=== PATIENT | male | born 1950 | race Caucasian/White ===

== ENCOUNTER 2024-01-16 19:50 | Inpatient (IN) | payer MEDICARE, OTHER, SELFPAY ==
[2024-01-16] VITALS (7 sets, daily range): BP systolic 108–146; BP diastolic 59–91; BMI 24.1; BMI 23.6
--- NOTE | 2024-01-16 15:35 | ED.GENMED ---
History of Present Illness
General
Chief Complaint: Male Genito-Urinary Symptoms
Time Seen by Provider: 01/16/24 15:09
Travel History
Have you had any contact with someone who has COVID-19?: No
Do you have any symptoms of coronavirus? Fever > 100 degrees, chills, cough, shortness of breath, sore throat, loss of taste or smell, muscle aches, or headache?: No
History of Present Illness
History of Present Illness:
73-year-old male with history of prostate hypertrophy presents to the emergency department for evaluation swelling to the perineum ongoing for the past 3 weeks. States it is painful to sit on it however denies any pain locally to the area. Does
report dysuria as well. No fever, chills, night sweats, nausea, or vomiting. He did undergo a robotic partial prostatectomy for BPH by urology at this hospital in early 2021 via abdominal approach. He denies any dyschezia or rectal bleeding
Past History
Past History
ED Past Medical History: Other (Prostatic hypertrophy and urinary retention)
ED Past Surgical History: Cholecystectomy
Social History
Personal:
Living: with family
Review of Systems
Review of Systems
Allergies reviewed?: Yes
All Other Systems: ROS reviewed and negative except as documented in HPI and ROS
Phy Exam
Physical Exam
Physical Exam:
GEN: Well appearing, NAD, WDWN
HEENT: Oral mucosa moist, no scleral icterus
Cardiac: Regular rate
Lung: No respiratory distress, no tachypnea
: Unremarkable exam of the penis and scrotum, no epididymitis, no testicular tenderness. Perineum appears to be enlarged, somewhat firm and nonmobile enlargement, unable to palpate the deepest margins of the abnormality, does not extend toward
the rectum, no evidence for rectal abscess externally
MSK: No gross deformity or injuries
Skin: Good color, no pallor or jaundice, no rashes
Neuro: AO x3, moves all extremities freely
Psych: Calm, cooperative
Course
Orders/Labs/Results
Orders:
Orders
01/16/24 Dinner
Regular
At Your Request: Full Participation
Does patient need a safe tray?: No
01/16/24 15:50
CT Pelvis With Iv Contrast Urgent
Comment:
Reason For Exam: perineal mass
01/16/24 15:56
Complete Blood Count/With Diff Urgent
Comprehensive Metabolic Panel Urgent
Urinalysis Reflex To Culture Urgent
Date Specimen was Collected: 01/16/24
Time Specimen was Collected: 15:55
Urine Microscopic Reflex Cult Urgent
Urine Culture Urgent
[facility] Source: U
Specimen Description:
Date Specimen was Collected: 01/16/24
Time Specimen was Collected: 15:55
01/16/24 18:31
Piperacillin/Tazo 3.375 Gram [Zosyn] 3.375 gram in 50 ml IV NOW
01/16/24 18:48
Lactic Acid Q4H
Comment: CANCEL 2nd LACTIC ACID IF 1st LACTIC ACID IS LESS THAN 2
Blood Culture Q30M
KAMI Source: Blood/Venous
Specimen Description:
01/16/24 18:58
Blood Culture Q30M
KAMI Source: Blood/Venous
Specimen Description:
01/16/24 19:09
Vancomycin [Vancocin] 1,500 mg 0.9% Sodium Chloride [Nss] 20 ml 0.9% Sodium Chloride 250 ml [Nss] 250 ml IV NOW
01/16/24 19:16
Admit/Transfer Patient As Directed
Co-Sign Provider:
Level of Care: Inpatient admission
Assign to:: Medical/Surgical
Physician / Group: momo
Diagnosis: perineal abscess, uti
Reason for Hospitalization: perineal abscess
Expected length of stay greater than two midnights?: Yes
ELOS- Estimated Length of Stay in days: 2
I certify the patient meets the requirements for IP care: Yes
01/16/24 19:17
Code Status As Directed
Resuscitation Status: Full Code
01/16/24 20:26
Acetaminophen [Tylenol] 650 mg PO Q4HPRN PRN
Ondansetron Injectable [Zofran] 4 mg IV Q6HPRN PRN
VANCOMYCIN Pharmacy to Dose [VANCOCIN Pharmacy to Dose] 1 each Pharmacy To Prepare [Call Pharmacy To Prepare] 0 ml IV PER PROTOCOL
01/16/24 20:26
UROLOGY CONSULT Routine
Consulting Provider: Fernando Tan
Was physician already notified: Yes
Activity As Directed
Activity Level: As Tolerated
Bladder Scan As Directed
Follow Bladder Retention/Intermittent Cath Algorithm?: Yes
PRN if no void in __ hours: 6
Frequency: Per Retention Algorithm
If Bladder Scan Result >: 400
then:: Straight cath
Pneumatic Compression Sleeves As Directed
Type: Knee high
Straight Cath As Directed
Frequency: Per Retention Algorithm
Additional Instructions: straight cath as needed per acute urinary retention algorithm for 24 hrs
Additional Instructions: for bladder scan greater than 400 mL
Vital Signs As Directed
Frequency: Per unit guidelines
DX Deep Vein Thrombosis Video Routine
01/16/24 22:45
Lactic Acid Q4H
Comment: CANCEL 2nd LACTIC ACID IF 1st LACTIC ACID IS LESS THAN 2
01/17/24 02:00
Piperacillin/Tazo 3.375 Gram [Zosyn] 3.375 gram in 50 ml IV Q6H
01/17/24 Breakfast
NPO
Allow oral meds: Yes
Allow clear liquids: Sips of Clears
Complete Blood Count/With Diff IN AM
Comprehensive Metabolic Panel IN AM
Abnormal Lab Results
01/16/24
15:56
RBC 4.33 L 10^6/uL
(4.70-6.10)
MCV 95.2 H fL
(80.0-94.0)
MCH 31.6 H pg
(27.0-31.0)
Absolute Neuts (auto) 6.8 H 10^3/uL
(1.4-6.5)
Absolute Monos (auto) 0.8 H 10^3/uL
(0.1-0.6)
Lymphocytes % 16.9 L %
(20.5-51.1)
Potassium 5.3 H mmol/L
(3.5-5.1)
Glucose 102 H mg/dl
(70-99)
Urine Ketones Trace A
(Negative)
Ur Occult Blood Reflex 2+ A
(Negative)
Leukocyte Esterase Rfl 2+ A
(Negative)
Urine WBC (Reflex) >100 A /HPF
(0-5)
Urine Bacteria (Reflex) Few A
(Negative)
Urine Albumin (Reflex) 1+ A
(Neg - Trace)
01/16/24 15:56
01/16/24 15:56
Vital Signs
Initial and Last Documented VS:
Initial Vital Signs
Temp Pulse Resp BP Pulse Ox
98.2 F 82 17 121/79 98
01/16/24 14:00 01/16/24 14:00 01/16/24 14:00 01/16/24 14:00 01/16/24 14:00
Last Documented Vital Signs
Temp Pulse Resp BP Pulse Ox
97.8 F 76 18 146/83 96
01/16/24 20:36 01/16/24 20:36 01/16/24 20:36 01/16/24 20:36 01/16/24 20:36
MDM/Problems Addressed
MDM/Problems Addressed:
73-year-old male presents with swelling and discomfort in the perineal region over the past 2 weeks. He is officially found to have a large perineal abscess, purulent urinalysis is likely reflective of urethral involvement. Case was reviewed with
urology, the patient is clinically well-appearing with no crepitus or severe pain exam to suggest necrotizing fasciitis. Will plan for operative intervention in the morning. Will admit to the hospitalist service on IV antibiotics
*Critical Care Note
Total Time (30-74mins, 75-104mins- exclusive of procedures): Not Applicable
ED Attending Note
-
Portions of this chart may have been created with voice recognition software.� Occasional wrong word or��sound alike� substitutions may have occurred due to the inherent limitations of voice recognition software.
Discharge Plan
Departure
Patient Disposition: Admit
Date of Disposition: 01/16/24
Time of Disposition: 18:54
Admit to: Med/Surg
Presentation/result/management discussed w/ accepting MD/DO: Hospitalist
Discharge Problem:
Abscess of perineum
Interventions
Interventions:
*Risk Screen - Suicide Last Done: 01/16/24 14:00
*General Assessment Last Done: 01/16/24 14:00
*Neglect/Abuse Screening Last Done: 01/16/24 14:00
*ED COVID-19 Vaccine History Last Done: 01/16/24 14:00
*Nursing Disposition Last Done: 01/16/24 20:23
ED-Male Genitourinary Assessment Last Done: 01/16/24 15:28
Discharge Date and Time
Discharge Date/Time: 01/16/24 20:23
[2024-01-16 16:10] LABS: % Basophils 0.5 % (0-2); % Immature Granulocytes 0.4 % (0-0.5); % Lymphocytes 16.9 % (20.5-51.1); % Monocytes 8.3 % (1.7-9.3); % Neutrophils 71.9 % (42.2-75.2); Absolute Basophils 0.1 10^3/uL (0-0.2); Absolute Eosinophils 0.2 10^3/uL (0-0.7); Absolute Lymphocytes 1.6 10^3/uL (1.2-3.4); Absolute Monocytes 0.8 10^3/uL (0.1-0.6); Absolute Neutrophils 6.8 10^3/uL (1.4-6.5); Hematocrit 41.2 % (39.0-52.0); Hemoglobin 13.7 g/dL (13.0-18.0); Mean Corp Hgb Conc. 33.3 g/dL (33.0-37.0); Mean Corpuscular Hgb 31.6 pg (27.0-31.0); Mean Corpuscular Volume 95.2 fL (80.0-94.0); Mean Platelet Volume 9.9 fL (7.4-10.4); Nucleated Red Blood Cells % 0 % (-); Platelet Count 273 10^3/uL (130-400); Red Blood Cell Count 4.33 10^6/uL (4.70-6.10); Red Cell Dist. Width 11.9 % (11.5-14.5); White Blood Cell Count 9.5 10^3/uL (4.8-10.8)
[2024-01-16 16:14] LABS: Urine Albumin 1+ (Neg - Trace); Urine Bilirubin Negative (Negative); Urine Character Slightly Cloudy (Clear); Urine Color Yellow; Urine Glucose Negative (Negative); Urine Ketone Trace (Negative); Urine Leukocyte 2+ (Negative); Urine Nitrite Negative (Negative); Urine Occult Blood 2+ (Negative); Urine Urobilinogen 1+ (Neg - 1+)
[2024-01-16 16:22] LABS: ALT (SGPT) 21 U/L (0-50); AST (SGOT) 31 U/L (17-59); Albumin 3.9 g/dl (3.5-5.0); Alkaline Phosphatase 81 U/L (38-126); Blood Urea Nitrogen 20 mg/dl (9-20); Calcium 9.1 mg/dl (8.4-10.2); Carbon Dioxide 25 mmol/L (22-30); Chloride 101 mmol/L (98-107); Estimated Creatinine Clearance 98 ml/min; Glucose 102 mg/dl (70-99); Potassium 5.3 mmol/L (3.5-5.1); Sodium 136 mmol/L (135-145); Total Bilirubin 0.7 mg/dl (0.2-1.3); Total Protein 7.6 g/dl (6.3-8.2); eGFR > 60.00
[2024-01-16 16:37] LABS: Urine Squamous Cell 0-2 /LPF (Few)
[2024-01-16 16:38] LABS: Urine White Cell >100 /HPF (0-5)
[2024-01-16 16:39] LABS: Urine Bacteria Few (Negative)
[2024-01-16] MEDS: ZOSYN 50 IV (19:04)
[2024-01-16 19:13] LABS: Lactic Acid 0.8 mmol/L (0.7-2.0)
--- NOTE | 2024-01-16 19:19 | HPS.HSE ---
Family Physician
-
Family Physician: Stephan Hutson
Chief Complaint
-
perineal pain/dysuria
History of Present Illness
73-year-old male with past medical history of BPH status post robotic partial prostatectomy in 2021, presenting to the emergency room for perineal swelling ongoing for the past 3 weeks. He has pain when he sits but denies any testicular pain. He
has pain with urination and has been dribbling urine recently.. He denies any fevers or chills, diarrhea. He did have some nausea yesterday.
Denies smoking or alcohol use.
Medical History
Past Medical History
Past Medical History: Reports Other (BPH status post robotic partial prostatectomy in 2021)
Past Surgical History: Reports Urological
Social History
Tobacco: Non-smoker
Alcohol: None
Drug: None
Family History
Family History: Not pertinent
Allergies / Home Medications
Allergies reflects when Allergies were last updated in [facility].
Home Medications with original date entered in [facility]
Allergy/Medication List:
Allergies
Allergy/AdvReac Type Severity Reaction Status Date / Time
No Known Allergies Allergy Verified 01/16/24 15:23
Home Medications
ascorbic acid (vitamin C) 250 mg tablet 250 mg PO DAILY PRN supplement 12/09/22
ibuprofen 200 mg capsule 200 mg PO Q6H PRN mild pain/fever 01/16/24
Review of Systems
-
History Source: Patient
A 12 point ROS was completed and negative except as noted: Yes
Constitutional: Reports No Symptoms
EENT: Reports No Symptoms
Respiratory: Reports No Symptoms
Cardiac: Reports No Symptoms
Abdomen/GI: Reports No Symptoms
: Reports See HPI
Musculoskeletal: Reports No Symptoms
Skin: Reports No Symptoms
Neurological: Reports No Symptoms
Endocrine: Reports No Symptoms
Hematologic/Lymphatic: Reports No Symptoms
Psych: Reports No Symptoms
Physical Exam
Vital Signs
Vital Signs
Temp Pulse Resp BP Pulse Ox
98.3 F 77 18 128/91 95
01/16/24 19:02 01/16/24 19:02 01/16/24 19:02 01/16/24 19:02 01/16/24 19:02
Physical Exam
General: Well Developed, Well Nourished and No Apparent Distress
HEENT: NormoCephalic, Moist mucous membranes and Atraumatic
Respiratory: Clear
Cardiac: S1/S2 and Regular Rhythm; No Murmur or Rub
GI: Soft, Non Tender, Non Distended and Normal Bowel Sounds; No Organomegaly
Rectal: Deferred by Provider
Musculoskeletal: No Clubbing, No Cyanosis and No Edema
Skin: No Rash
Neuro: Nonfocal/grossly intact
Laboratory Results
-
01/16/24 15:56
01/16/24 15:56
Laboratory Results
Lactic Acid 0.8 mmol/L (0.7-2.0) 01/16/24 18:48
Total Bilirubin 0.7 mg/dl (0.2-1.3) 01/16/24 15:56
AST 31 U/L (17-59) 01/16/24 15:56
ALT 21 U/L (0-50) 01/16/24 15:56
Alkaline Phosphatase 81 U/L (38-126) 01/16/24 15:56
Data Reviewed
-
Lab Data: Labs Reviewed by me
Old Records: Reviewed
Impression/Plan
-
IMPRESSION:
PLAN:
# Right perineal abscess
# Urinary tract infection
-UA indicative of infection
-CT pelvis shows 4.5 cm bilobed perineal abscess just below the right side of the base of penis as well as inflammatory stranding in the inferior medial gluteal fat
-Check urine culture, blood cultures
-Vancomycin/Zosyn
-N.p.o. pa stmidnight for OR tomorrow by urology
BPH/chronic partial bladder outlet obstruction
-Bladder scan protocol
Full code
DVT prophylaxis�SCDs
N.p.o. past midnight
[2024-01-16] MEDS: VANCOCIN 300 MG IV (19:37)
[2024-01-16] MEDS: VANCOCIN 300 ML IV (19:37)
--- NOTE | 2024-01-16 21:00 | PTCARENOTE ---
Received pt from ED via stretcher. Pt ambulated to bed without assist. AAOx3, VSS, no complaints of pain at this time. Does state urgency and some burning with urination. Oriented to floor, call chun within reach.
[2024-01-17] VITALS (11 sets, daily range): BP systolic 108–139; BP diastolic 65–86
[2024-01-17] MEDS: ZOSYN 50 IV ×4 (01:00→20:05)
--- NOTE | 2024-01-17 04:10 | DOWNTIME ---
There was a [employer] Client Electronic Equipment Set Up Operator Downtime on 01/17/2024 from 0100 to 01/17/2024 at 0322. Downtime documentation of patient's care, including medication administrations, has been reconciled in the electronic record per guidelines. Refer to the
patient's paper chart under the miscellaneous tab to see printed paper medication records and downtime forms.
[2024-01-17 06:25] LABS: % Eosinophils 4.6 % (0-6); % Immature Granulocytes 0.2 % (0-0.5); % Lymphocytes 18.1 % (20.5-51.1); % Monocytes 10.3 % (1.7-9.3); % Neutrophils 65.8 % (42.2-75.2); Absolute Basophils 0.1 10^3/uL (0-0.2); Absolute Eosinophils 0.4 10^3/uL (0-0.7); Absolute Lymphocytes 1.5 10^3/uL (1.2-3.4); Absolute Monocytes 0.9 10^3/uL (0.1-0.6); Absolute Neutrophils 5.5 10^3/uL (1.4-6.5); Hematocrit 35.9 % (39.0-52.0); Hemoglobin 11.9 g/dL (13.0-18.0); Mean Corp Hgb Conc. 33.1 g/dL (33.0-37.0); Mean Corpuscular Hgb 31.8 pg (27.0-31.0); Mean Platelet Volume 10.3 fL (7.4-10.4); Nucleated Red Blood Cells % 0 % (-); Platelet Count 274 10^3/uL (130-400); Red Blood Cell Count 3.74 10^6/uL (4.70-6.10); Red Cell Dist. Width 11.9 % (11.5-14.5); White Blood Cell Count 8.4 10^3/uL (4.8-10.8)
[2024-01-17 06:47] LABS: ALT (SGPT) 22 U/L (0-50); AST (SGOT) 25 U/L (17-59); Albumin 3.3 g/dl (3.5-5.0); Alkaline Phosphatase 84 U/L (38-126); Blood Urea Nitrogen 20 mg/dl (9-20); Calcium 8.8 mg/dl (8.4-10.2); Carbon Dioxide 27 mmol/L (22-30); Chloride 103 mmol/L (98-107); Estimated Creatinine Clearance 79 ml/min; Glucose 103 mg/dl (70-99); Potassium 4.8 mmol/L (3.5-5.1); Sodium 139 mmol/L (135-145); Total Bilirubin 0.5 mg/dl (0.2-1.3); Total Protein 6.4 g/dl (6.3-8.2); eGFR > 60.00
--- NOTE | 2024-01-17 07:15 | W.PN.UPDATE ---
Update Note
Progress Note Update
73M w/ prior urologic h/o BPH/CALZADA s/p robotic partial prostatectomy (Dr. Hutson, 2021) presents w/ 3 weeks of perineal swelling and discomfort.
Notes pain w/ sitting and direct pressure.
Notes increasing frequency in last several weeks.
+ dysuria.
Denies hematuria.
Denies F/C/N/V.
WBC wnl
Cr wnl
UA >100 WBCs, few bacteria
UCx pending
exam: indurated and localized 3-4 cm area in right perineum WITHOUT tracking to penile shaft or perirectal tissues, NO skin changes, crepitus, or drainage noted, normal phallus w/ orthotopic meatus, bilateral descended and non-tender testes w/o
intratesticular masses.
CT Pelvis w/ IV contrast =>
1.). 4.5 cm bilobed peroneal abscess just below the right side of the base of the penis
2). Prostatomegaly with concentric thickening of the wall of the urinary bladder suggesting chronic partial bladder outlet obstruction
3). Inflammatory stranding in the inferomedial gluteal fat
A/P:
Localized perineal abscess - WITHOUT evidence of Adriane's gangrene
cUTI
H/o BPH s/p robotic partial prostatectomy
- NPO
- To OR this afternoon for I&D of perineal abscess
- Continue broad-spectrum IV abx per Hospitalist
- Start pyridium 200 mg BID prn dysuria
- CM consult for VN for wound care on discharge
Plan of care d/w patient this morning - including risks, benefits, alternatives, and potential complications of I&D of perineum.
D/w Dr. Alvarado.
--- NOTE | 2024-01-17 07:45 | CONS.URO ---
Consultation
-
Date/Time Consultation Requested: 01/16/24
Date/Time Consultation Performed: 01/17/24 0715
Requesting Provider: ER
Performing Provider: Britney
Reason for Consultation: perineal abscess
Medical History
History of Present Illness
73M w/ prior urologic h/o BPH/CALZADA s/p robotic partial prostatectomy (Dr. Hutson, 2021) presents w/ 3 weeks of perineal swelling and discomfort.
Notes pain w/ sitting and direct pressure.
Notes increasing frequency in last several weeks.
+ dysuria.
Denies hematuria.
Denies F/C/N/V.
WBC wnl
Cr wnl
UA >100 WBCs, few bacteria
UCx pending
Past Medical History
Past Medical History: Other (BPH with urinary retention)
Past Surgical History: Urological (robotic partial prostatectomy0 (11/2021))
Social History
Tobacco: Non-smoker
Alcohol: Occasional
Drug: None
Personal:
Living: With Family
Employment: Retired
Family History
Family History: Reviewed & Not Pertinent
Allergies/Home Medications
Allergies
Allergy/AdvReac Type Severity Reaction Status Date / Time
fentanyl Allergy Patient Verified 01/16/24 20:30
states
makes him
'wacked
out'
Home Medications
�Medication �Instructions �Recorded �Confirmed �Type
ascorbic acid (vitamin C) 250 mg 250 mg PO DAILY PRN supplement 12/09/22 01/16/24 History
tablet
ibuprofen 200 mg capsule 200 mg PO Q6H PRN mild pain/fever 01/16/24 01/16/24 History
Review of Systems
-
History Source: Patient
A 12 point Review of Systems was completed except as noted: Yes
Physical Exam
Vital Signs
Vital Signs
Temp Pulse Resp BP Pulse Ox
97.9 F 67 17 110/70 95
01/17/24 15:00 01/17/24 15:00 01/17/24 15:00 01/17/24 15:00 01/17/24 15:00
Lab / Testing Results
Laboratory Results
01/17/24 05:26
01/17/24 05:26
Physical Exam
General: Well Developed, Well Nourished, No Apparent Distress and Comfortable
HEENT: Normocephalic and Anicteric
Respiratory: Non Labored Respirations
Cardiac: S1/S2
Breast: N/A
GI: Soft, Non Tender and Non Distended
Rectal: Deferred by Provider and Other
Genito-urinary: No Costovertebral Tend, Clear Urine and Other (indurated and localized 3-4 cm area in right perineum WITHOUT tracking to penile shaft or perirectal tissues, NO skin changes/crepitus/drainage noted, normal phallus w/ orthotopic
meatus, bilateral descended and non-tender testes w/o intratesticular masses. )
Musculoskeletal: No Edema
Skin: Warm and Dry
Neuro: AO x 3, No Motor Deficits and Nonfocal/Grossly Intact
Hematologic/Lymphatic: No Lymphadenopathy
Psych: Calm and Intact Judgement
Assessment / Plan
-
CT Pelvis w/ IV contrast =>
1.). 4.5 cm bilobed peroneal abscess just below the right side of the base of the penis
2). Prostatomegaly with concentric thickening of the wall of the urinary bladder suggesting chronic partial bladder outlet obstruction
3). Inflammatory stranding in the inferomedial gluteal fat
A/P:
Localized perineal abscess WITHOUT evidence of Adriane's gangrene
cUTI
H/o BPH s/p robotic partial prostatectomy
- NPO
- To OR this afternoon for I&D of perineal abscess
- Continue broad-spectrum IV abx per Hospitalist
- Start pyridium 200 mg BID prn dysuria
- CM consult for VN for wound care on discharge
Reviewed risks, benefits, alternatives, and potential complications of I&D of perineum/genitals in detail.
Data Reviewed
-
Total Time Spent with Patient (in minutes): 55
CT Scan: Image personally visualized and interpreted, Report Reviewed by Me and Discussed with Patient
Lab Data: Labs Reviewed and Discussed with Patient
Old Records: Reviewed
[2024-01-17] MEDS: ZOFRAN 4 MG IV (08:24)
--- NOTE | 2024-01-17 09:38 | PHA.VAN.IN ---
Assessment
- Assessment
Renal Function: Appears similar to baseline
Concomitant Antimicrobials: piperacillin/tazobactam
AUC Dosing Plan
- Dosing Variables
Dosing Weight (kg): 83
Dosing CrCl (ml/min): 79
Vd coefficient (L/kg): 0.7
- Empiric Dosing
Initial / Loading Dose: 1500mg - 01/15 19:37
Maintenance Regimen: Vanc 1000mg Q12H starting at 1800 - give 500mg x1 now to maintain levels
Estimated AUC (mcg*h/mL): 509
Estimated Peak (mcg*h/mL): 30.3
Estimated Trough (mcg/ml): 14
Estimated Half Life (H): 9.9
- Monitoring
No levels ordered at this time: consider levels in next few days
Pharmacokinetics Vancomycin I
- -
Patient Age: 73
Patient Sex: Male
Vancomycin Day #: 1
Indication: Genito-Urinary Tract
Requesting Provider: Dr. Dailey
Pertinent Antimicrobial Allergies:
no pertinent antibiotic allergies
Height / Weight:
Height 6 ft 2 in
Actual Weight 83.461 kg
- Vital Signs / Lab Results
Temp Pulse Resp BP Pulse Ox
98.3 F 69 17 110/65 95
01/17/24 07:00 01/17/24 07:00 01/17/24 07:00 01/17/24 07:00 01/17/24 07:00
Lab Results - Hematology
01/16/24 01/17/24
15:56 05:26
WBC 9.5 8.4
Lab Results - Chemistry
01/16/24 01/17/24
15:56 05:26
BUN 20 20
Creatinine 0.8 1.0
Estimated Creat Clear 98 79
Albumin 3.9 3.3 L
01/16/24 01/16/24
18:48 22:45
Lactic Acid 0.8 Cancelled
Lab Results - Urine
01/16/24
15:56
Urine Nitrite (Reflex) Negative
Leukocyte Esterase Rfl 2+ A
Urine WBC (Reflex) >100 A
Ur Squamous Epith Cells 0-2
Urine Bacteria (Reflex) Few A
[2024-01-17] MEDS: VANCOCIN HCL 500 MG 100 IV (09:49)
--- NOTE | 2024-01-17 15:25 | CM ---
CM following re: d/c planning
Chart reviewed
CM met with patient and his spouse at bedside; IA completed
Pt states he and his spouse reside n a [address] with [address]
[place] patient reports independence at baseline
Pt has previous SNF/DME/VN hx
Pt has prescription coverage & rx's are filled at [facility] on [facility]
Pt PCP-Stephan Hutson
CM to speak with patient regarding which home care agency he'd like post d/c as addressed in consult
CM will remain available to the patient and assist with needs as indicated
PLAN; d/c home with VN
--- NOTE | 2024-01-17 16:12 | PTCARENOTE ---
Patient NPO since 12am. Chlorhexadine wipes completed twice. New gown and bed sheets placed. Patient understands reason and rationale for surgery. Pneumatic compression stockings placed on patient. report given to OR. accompanying patient to
wait in OR waiting area.
--- NOTE | 2024-01-17 16:48 | W.PN.HOSP.TC ---
Today's Communication/Plan
-
Surgery/I&D today
Continue antibiotics
Appreciate urology
Assessment / Plan
Assessment / Plan
Physical Exam
General: Well Developed, Well Nourished and No Apparent Distress
HEENT: NormoCephalic, Moist mucous membranes and Atraumatic
Respiratory: Clear
Cardiac: S1/S2 and Regular Rhythm; No Murmur or Rub
GI: Soft, Non Tender, Non Distended and Normal Bowel Sounds; No Organomegaly
Rectal: Deferred by Provider
Musculoskeletal: No Clubbing, No Cyanosis and No Edema
Skin: No Rash
Neuro: Nonfocal/grossly intact

# Right perineal abscess and pain
# Urinary tract infection
-UA indicative of infection
-CT pelvis shows 4.5 cm bilobed perineal abscess just below the right side of the base of penis as well as inflammatory stranding in the inferior medial gluteal fat
-Follow urine culture, blood cultures
-Vancomycin/Zosyn
-NPO
- To OR this afternoon for I&D of perineal abscess
- Continue pyridium 200 mg BID prn dysuria
- CM consult for VN for wound care on discharge
- Consulted, urology, recommendations appreciated
BPH/chronic partial bladder outlet obstruction s/p robotic partial prostatectomy (Dr. Hutson, 2021)
-Bladder scan protocol
Full code
DVT prophylaxis�SCDs for now given surgery. Heparin subq starting tomorrow AM.
Anticipated Discharge: > 48 hours
Subjective/Interval History
-
Date of Service: January 17, 2024
Patient was not present in his room at the time of attempted patient encounter. Case discussed with staff.
Objective Data
-
Labs:
Laboratory Results
01/17/24
05:26
WBC 8.4
Hgb 11.9 L
Hct 35.9 L
Plt Count 274
Sodium 139
Potassium 4.8
Chloride 103
Carbon Dioxide 27
BUN 20
Creatinine 1.0
Glucose 103 H
Calcium 8.8
Total Bilirubin 0.5
AST 25
ALT 22
Alkaline Phosphatase 84
Vital Signs:
Vital Signs
Temp Pulse Resp BP Pulse Ox
97.9 F 67 17 110/70 95
01/17/24 15:00 01/17/24 15:00 01/17/24 15:00 01/17/24 15:00 01/17/24 15:00
I&O
01/16/24 01/17/24 01/18/24
06:59 06:59 06:59
Intake Total 240 / 240
Output Total 450 / 450
Balance -210 / -210
--- NOTE | 2024-01-17 17:29 | W.IMMPOSTOP ---
Surgical Immed Post Op Note
-
Primary Surgeon: Britney
Pre-op Diagnosis: Localized perineal abscess, cUTI
Post-op Diagnosis: Same
Procedure Performed: I&D perineum, right scrotal exploration
Anesthesia Type: LMA + 10 cc 50/50 lidocaine/marcaine mix w/o epi
Specimen / Cultures: aerobic/anaerobic wound cultures
Estimated Blood Loss: 3 cc
Drains: None
Complications: None
Operative Findings: no evidence of tissue ischemia or necrosis on exploration, moderate purulent abscess fluid evacuated w/ generous irrigation of pocket
[2024-01-17] MEDS: VANCOCIN 200 IV (18:03)
[2024-01-17] MEDS: TYLENOL #3 1 TABLET PO (20:27)
--- NOTE | 2024-01-17 22:20 | PTCARENOTE ---
Pt more forgetful tonight. AAOx3 and answering questions appropriately but occasional forgetfulness during conversation. Pt's requesting bed alarm be placed on patient. Alarm on and active. Plan of care ongoing
[2024-01-18] MEDS: ZOSYN 50 IV ×3 (02:31→14:41)
[2024-01-18 03:10] VITALS: BP 149/91
[2024-01-18] MEDS: VANCOCIN 200 IV (05:48)
[2024-01-18] MEDS: MOTRIN 600 MG PO (06:09)
[2024-01-18] MEDS: HEPARIN 5000 UNITS SC (08:08)
[2024-01-18 08:12] VITALS: BP 95/50
[2024-01-18 11:27] VITALS: BP 108/71
--- NOTE | 2024-01-18 14:10 | W.PN.HOSP.TC ---
Today's Communication/Plan
-
Discharge today
Assessment / Plan
Assessment / Plan
Physical Exam
General: Well Developed, Well Nourished and No Apparent Distress
HEENT: NormoCephalic, Moist mucous membranes and Atraumatic
Respiratory: Clear
Cardiac: S1/S2 and Regular Rhythm
GI: Soft, Non Tender, Non Distended and Normal Bowel Sounds
Musculoskeletal: No Cyanosis and No Edema
Skin: No Rash
Neuro: Nonfocal/grossly intact

# Right perineal abscess and pain
# Urinary tract infection
-UA suggested infection
-CT pelvis shows 4.5 cm bilobed perineal abscess just below the right side of the base of penis as well as inflammatory stranding in the inferior medial gluteal fat
-Urine culture probably contaminated
-Follow-up blood cultures outpatient
-Vancomycin/Zosyn inpatient
-Augmentin 875 BID x10 days as discussed with Dr. Tan (urologist)
-Status post pyridium 200 mg BID prn dysuria
-Consulted, urology, recommendations appreciated
#BPH/chronic partial bladder outlet obstruction s/p robotic partial prostatectomy (Dr. Hutson, 2021)
-Bladder scan protocol
Full code
DVT prophylaxis�SCDs for now given surgery. Heparin subq
More than 30 minutes spent in discharge including
Final examination of the patient
Summarizing hospital stay
Instructions for continuing care to all relevant caregivers
Preparation of discharge records, prescriptions, and referral forms
Total time spent (in minutes): 35
Anticipated Discharge: Today
Subjective/Interval History
-
Date of Service: January 18, 2024
Patient was seen and examined. He reported no fever, chest pain, shortness of breath, abdominal pain or any other new symptoms or complaints.
Objective Data
-
Vital Signs:
Vital Signs
Temp Pulse Resp BP Pulse Ox
97.9 F 74 18 108/71 97
01/18/24 11:27 01/18/24 11:27 01/18/24 11:27 01/18/24 11:27 01/18/24 11:27
I&O
01/17/24 01/18/24 01/19/24
06:59 06:59 06:59
Intake Total 240 / 240 1060 / 1060
Output Total 450 / 450 875 / 875
Balance -210 / -210 185 / 185
--- NOTE | 2024-01-18 14:40 | W.DS.TRANS ---
DC Summary - Co Op
-
Discharge Instructions:
Discharge Diagnosis/Procedures #Right perineal abscess and pain
#Urinary tract infection
#Benign Prostatic Hyperplasia/chronic partial
bladder outlet obstruction status post robotic
partial prostatectomy (Dr. Hutson, 2021)
Diet As tolerated
Activity As tolerated
Driving Restrictions Not until seen by your Dr
Instructions: Amoxicillin and Clavulanate
Stand-Alone Forms:
Changes to Home Medications: Yes
Discharge Medications:
DC Medications w/original date entered in [employer]
ascorbic acid (vitamin C) 250 mg tablet 250 mg PO DAILY PRN supplement 12/09/22
ibuprofen 200 mg capsule 200 mg PO Q6H PRN mild pain/fever 01/16/24
amoxicillin 875 mg-potassium clavulanate 125 mg tablet 1 tab PO BID 10 days #20 tabs 01/18/24
Home Medication Changes
Amoxicillin-Pot Clavulanate is a new medication
Pending Results: Yes
Additional Pending Results:
Final results of cultures including surgical cultures
Total time spent discharging patient (in min): 35
--- NOTE | 2024-01-18 15:19 | PTCARENOTE ---
Patient's taught how to complete dressing change by surgeon. has dressing supplies and verbalizes understanding. Reviewed discharge instructions with and patient. IV removed. Reviewed signs and symptoms of infection. Reviewed usage of
antibiotics. Patient and verbalize understanding of teaching and can verbalize when to call doctor. Patient left via wheelchair with staff escort.
[2024-01-18 15:30] VITALS: BP 109/61
--- NOTE | 2024-01-18 16:05 | CM ---
CM following re: d/c planning
Chart reviewed
Pt is medically stable for d/c
Post d/c recommendation initially was for home with VN however the patient's spouse was instructed at bedside how to care for and dress abscess site
Pt to continue oral antibiotic as directed and no additional d/c needs to note
IMM reviewed and copy provided
PLAN: d/c home no needs
--- NOTE | 2024-01-20 17:27 | W.DCSUMMARY ---
Discharge Summary
Discharge Data
Date of Admission: 01/16/24
Date of Discharge: 01/18/24
Total time spent discharging patient (in min): 35
-
Pending Results: Yes
Additional Pending Results:
Final results of cultures including surgical cultures
Hospital Course
73 y/o male with past medical history of benign prostatic hyperplasia status post robotic partial prostatectomy in 2021, presented to the emergency room for perineal swelling ongoing for the prior 3 weeks. Patient was started on broad-spectrum
antibiotics and urology was consulted. CT Pelvis with intravenous contrast was performed -- please see official CT report for further details. Patient was found not to have Adriane's gangrene. Patient was given Pyridium during his hospitalization
for dysuria. On January 17, 2024, patient had an incision and drainage of perineum with right scrotal exploration for localized perineal abscess and urinary tract infection. Patient was stable for discharge with oral antibiotics. Patient's would
perform wound care at home for the patient after discharge, as requested by patient.
Discharge Plan
-
Patient Disposition: Home (Routine Discharge)
Discharge Diagnosis/Procedures: #Right perineal abscess and pain
#Urinary tract infection
#Benign Prostatic Hyperplasia/chronic partial bladder outlet obstruction status post robotic partial prostatectomy (Dr. Hutson, 2021)
Condition: Fair
Diet: As tolerated
Activity: As tolerated
Driving Restrictions: Not until seen by your Dr
Activity Restrictions/Additional Instructions:
Follow-up with Dr. Hutson (urologist) in urology office in 1 week for wound check
Instructions: Amoxicillin and Clavulanate
Referrals:
Stephan Hutson MD [Family Provider] - in one to two weeks
Additional Discharge Medication Instructions: Amoxicillin-Pot Clavulanate is a new medication
Prescriptions:
New
amoxicillin-pot clavulanate 875-125 mg tablet
1 tab PO BID 10 Days Qty: 20 0RF
Continued
ascorbic acid (vitamin C) 250 mg Tablet
250 mg PO DAILY PRN (Reason: supplement)
ibuprofen 200 mg Capsule
200 mg PO Q6H PRN (Reason: mild pain/fever)
Discharge Orders:
Discharge Patient (As Directed); Ordered 01/18/24
Ordered By: Kai Alvarado
Discharge Date and Time
Discharge Date/Time: 01/18/24 15:53
Print Language: FIJIAN
== END 2024-01-18 15:53 | disposition home or self-care (01) | DRG 603 ==
LOC: 4 EAST ACU 19:50
PROVIDERS: Physician Assistant; ADMITTING PHYSICIAN Hospitalist; ATTENDING PHYSICIAN Hospitalist; CONSULT PHYSICIAN Surgery; EMERGENCY PHYSICIAN Emergency Medicine; FAMILY PHYSICIAN Specialist
PROC: 0V95XZZ Drainage of Scrotum, External Approach (ICD-10-PCS; 2024-01-17)
DX: L02.215 Cutaneous abscess of perineum (principal); N39.0 Urinary tract infection, site not specified
CPT/HCPCS: 72193; 80053; 81003; 81015; 83605; 85025; 87040; 87070; 87075; 87086; 87147; 87205; 96374; 99285; Q9967

== ENCOUNTER → 2024-02-05 13:16 | Outpatient (REF) | payer MEDICARE, OTHER, SELFPAY ==
[2024-02-07 22:51] LABS: PSA Total 4.2 ng/mL (0.0-4.0)
== END ==
LOC: REG 13:16
PROVIDERS: ATTENDING PHYSICIAN Specialist
DX: Z12.5 Encounter for screening for malignant neoplasm of prostate (principal); N39.0 Urinary tract infection, site not specified; R97.20 Elevated prostate specific antigen [PSA]
CPT/HCPCS: 36415; 84153; 84154; 87086

== ENCOUNTER → 2024-07-12 14:22 | Outpatient (REF) | payer MEDICARE, OTHER, SELFPAY | LOC: RAD 14:22 | PROVIDERS: ATTENDING PHYSICIAN Family Medicine | DX: I82.402 Acute embolism and thrombosis of unspecified deep veins of left lower extremity (principal); R22.42 Localized swelling, mass and lump, left lower limb | CPT/HCPCS: 93971 ==

== ENCOUNTER 2024-07-19 12:59 | Outpatient (RCR) | payer MEDICARE, OTHER, SELFPAY | END 2024-07-19 23:59 | disposition home or self-care (01) | LOC: ROT 12:59 | PROVIDERS: ATTENDING PHYSICIAN Family Medicine | DX: R41.3 Other amnesia (principal); R41.9 Unspecified symptoms and signs involving cognitive functions and awareness; Z73.6 Limitation of activities due to disability; I95.1 Orthostatic hypotension; G90.1 Familial dysautonomia [Riley-Day]; Z91.81 History of falling | CPT/HCPCS: 96125; 97110; 97167 ==

== ENCOUNTER 2024-08-20 13:48 | Outpatient (RCR) | payer MEDICARE, OTHER, SELFPAY | END 2024-08-20 23:59 | disposition home or self-care (01) | LOC: RPT 13:48 | PROVIDERS: ATTENDING PHYSICIAN Family Medicine | DX: R41.3 Other amnesia (principal); R41.9 Unspecified symptoms and signs involving cognitive functions and awareness; G90.1 Familial dysautonomia [Riley-Day]; Z73.6 Limitation of activities due to disability; Z86.718 Personal history of other venous thrombosis and embolism | CPT/HCPCS: 97110; 97112; 97129; 97130; 97163; 97530; 97535 ==

== ENCOUNTER 2024-09-18 13:06 | Outpatient (RCR) | payer MEDICARE, OTHER, SELFPAY | END 2024-09-18 23:59 | disposition home or self-care (01) | LOC: RPT 13:06 | PROVIDERS: ATTENDING PHYSICIAN Family Medicine | DX: R41.3 Other amnesia (principal); R41.9 Unspecified symptoms and signs involving cognitive functions and awareness; G90.1 Familial dysautonomia [Riley-Day]; Z73.6 Limitation of activities due to disability; M54.2 Cervicalgia; R26.2 Difficulty in walking, not elsewhere classified; I95.1 Orthostatic hypotension; Z86.718 Personal history of other venous thrombosis and embolism | CPT/HCPCS: 97110; 97112; 97129; 97130; 97530 ==

== ENCOUNTER 2024-10-21 14:27 | Outpatient (RCR) | payer MEDICARE, OTHER, SELFPAY | END 2024-10-21 23:59 | disposition home or self-care (01) | LOC: RPT 14:27 | PROVIDERS: ATTENDING PHYSICIAN Family Medicine | DX: R41.3 Other amnesia (principal); R41.9 Unspecified symptoms and signs involving cognitive functions and awareness; G90.1 Familial dysautonomia [Riley-Day]; M54.2 Cervicalgia; R26.2 Difficulty in walking, not elsewhere classified; Z73.6 Limitation of activities due to disability; I95.1 Orthostatic hypotension; R51.9 Headache, unspecified; Z86.718 Personal history of other venous thrombosis and embolism | CPT/HCPCS: 97110; 97112; 97129; 97130; 97530; 97535 ==

== ENCOUNTER 2024-11-14 14:34 | Outpatient (RCR) | payer MEDICARE, OTHER, SELFPAY | END 2024-11-14 23:59 | disposition home or self-care (01) | LOC: RPT 14:34 | PROVIDERS: ATTENDING PHYSICIAN Family Medicine | DX: R41.3 Other amnesia (principal); R41.9 Unspecified symptoms and signs involving cognitive functions and awareness; G90.1 Familial dysautonomia [Riley-Day]; Z73.6 Limitation of activities due to disability; M54.2 Cervicalgia; R26.2 Difficulty in walking, not elsewhere classified; I95.1 Orthostatic hypotension; Z86.718 Personal history of other venous thrombosis and embolism; R51.9 Headache, unspecified | CPT/HCPCS: 97129; 97130; 97530 ==

== ENCOUNTER 2024-11-17 16:09 | Emergency (ER) | payer MEDICARE, OTHER, SELFPAY ==
[2024-11-17 16:11] VITALS: BP 111/65
--- NOTE | 2024-11-17 17:22 | ED.GENMED ---
History of Present Illness
General
Chief Complaint: Musculo-Skeletal Complaint
Time Seen by Provider: 11/17/24 17:04
History of Present Illness
History of Present Illness:
74-year-old male presents after a fall on ice yesterday. He complains of pain to the left knee, left outer lower leg, and left dorsal foot. He is able to ambulate with pain.
Past History
Past History
ED Past Medical History: Other (Prostatic hypertrophy and urinary retention)
ED Past Surgical History: Cholecystectomy
Social History
Personal:
Living: with family
Review of Systems
Review of Systems
Allergies reviewed?: Yes
All Other Systems: ROS reviewed and negative except as documented in HPI and ROS
Phy Exam
Physical Exam
Physical Exam:
GEN: Well appearing, NAD, WDWN
HEENT: Oral mucosa moist, no scleral icterus
Cardiac: Regular rate
Lung: No respiratory distress, no tachypnea
MSK: No gross deformity or injuries. Tenderness to the lateral lower leg at the proximal fibula. Left knee range of motion and left ankle range of motion are normal. No bony tenderness to the ankle prominences or the left foot
Skin: Good color, no pallor or jaundice, no rashes
Neuro: AO x3, moves all extremities freely
Psych: Calm, cooperative
Course
Orders/Labs/Results
Orders:
Orders
11/17/24 16:14
CR Foot - Left Min 3 Views Urgent
Comment:
Reason For Exam: injury, pain
CR Knee - Left 4 Or More View* Urgent
Comment:
Reason For Exam: injury, pain
CR Leg Tibia/fibula Left 2 Vw Urgent
Comment:
Reason For Exam: injury, pain
Vital Signs
Initial and Last Documented VS:
Initial Vital Signs
Temp Pulse Resp BP Pulse Ox
98.1 F 89 16 111/65 98
11/17/24 16:11 11/17/24 16:11 11/17/24 16:11 11/17/24 16:11 11/17/24 16:11
Last Documented Vital Signs
Temp Pulse Resp BP Pulse Ox
98.1 F 89 16 111/65 98
11/17/24 16:11 11/17/24 16:11 11/17/24 17:45 11/17/24 16:11 11/17/24 16:11
Procedures
Splinting/Sling Placement
Left Leg:
Procedure completed by: J Carlos Thompson PA-C
Pre-splint extermity exam: neurovascular intact
Type of splint: sugar-tong
Splint material: fiberglass
Splint checked by provider?: Yes
MDM/Problems Addressed
MDM/Problems Addressed:
X-rays reveal a nondisplaced proximal fibula fracture on the left. This was placed in a sugar-tong splint with partial weightbearing advised and crutches. Orthopedic follow-up recommended
*Critical Care Note
Total Time (30-74mins, 75-104mins- exclusive of procedures): Not Applicable
ED Attending Note
-
Portions of this chart may have been created with voice recognition software.� Occasional wrong word or��sound alike� substitutions may have occurred due to the inherent limitations of voice recognition software.
Discharge Plan
Departure
Patient Disposition: Home (Routine Discharge)
Date of Disposition: 11/17/24
Time of Disposition: 17:22
Patient with high blood pressure during this ER visit?: No
Discharge Problem:
Closed fracture of shaft of left fibula
Instructions: Lower leg fracture
Prescriptions:
No Action
ascorbic acid (vitamin C) 250 mg Tablet
250 mg PO DAILY PRN (Reason: supplement)
ibuprofen 200 mg Capsule
200 mg PO Q6H PRN (Reason: mild pain/fever)
amoxicillin-pot clavulanate 875-125 mg tablet
1 tab PO BID 10 Days Qty: 20 0RF
Referrals:
Samson Alba MD [Active] -
Cole Hussein MD [Family Provider] -
Activity Restrictions/Additional Instructions:
You may bear weight gently on the toes while using the crutches, do not attempt to walk until orthopedics has evaluated you
Interventions
Interventions:
*Risk Screen - Suicide Last Done: 11/17/24 16:11
*General Assessment Last Done: 11/17/24 16:11
*Neglect/Abuse Screening Last Done: 11/17/24 16:11
ED- Fall Risk Assessment Last Done: 11/17/24 17:29
*ED COVID-19 Vaccine History Last Done: 11/17/24 16:11
*Nursing Disposition Last Done: 11/17/24 17:45
ED-Musculoskeletal Assessment Last Done: 11/17/24 17:29
Discharge Date and Time
Discharge Date/Time: 11/17/24 17:46
Print Language: UKRAINIAN
== END 2024-11-17 17:46 | disposition home or self-care (01) ==
LOC: EMR 16:09
PROVIDERS: EMERGENCY PHYSICIAN Emergency Medicine; FAMILY PHYSICIAN Family Medicine
DX: S82.492A Other fracture of shaft of left fibula, initial encounter for closed fracture (principal); W00.0XXA Fall on same level due to ice and snow, initial encounter; N40.0 Benign prostatic hyperplasia without lower urinary tract symptoms; Z90.49 Acquired absence of other specified parts of digestive tract
CPT/HCPCS: 99283; 29515; 73564; 73590; 73630

== ENCOUNTER 2024-11-23 19:57 | Inpatient (IN) | payer MEDICARE, OTHER, SELFPAY ==
[2024-11-23] VITALS (11 sets, daily range): BP systolic 97–135; BP diastolic 73–93; BMI 26.7
[2024-11-23 17:07] LABS: % Basophils 0.8 % (0-2); % Eosinophils 3.5 % (0-6); % Immature Granulocytes 0.4 % (0-0.5); % Lymphocytes 24.1 % (20.5-51.1); % Monocytes 6.9 % (1.7-9.3); % Neutrophils 64.3 % (42.2-75.2); Absolute Basophils 0.1 10^3/uL (0-0.2); Absolute Eosinophils 0.3 10^3/uL (0-0.7); Absolute Monocytes 0.6 10^3/uL (0.1-0.6); Absolute Neutrophils 5.4 10^3/uL (1.4-6.5); Hematocrit 42.2 % (39.0-52.0); Hemoglobin 14.2 g/dL (13.0-18.0); Mean Corp Hgb Conc. 33.6 g/dL (33.0-37.0); Mean Corpuscular Hgb 32.6 pg (27.0-31.0); Mean Platelet Volume 10.5 fL (7.4-10.4); Nucleated Red Blood Cells % 0 % (-); Platelet Count 140 10^3/uL (130-400); Red Blood Cell Count 4.35 10^6/uL (4.70-6.10); Red Cell Dist. Width 12.3 % (11.5-14.5); White Blood Cell Count 8.4 10^3/uL (4.8-10.8)
[2024-11-23 17:12] LABS: ALT (SGPT) 26 U/L (0-50); AST (SGOT) 28 U/L (17-59); Albumin 4.1 g/dl (3.5-5.0); Alkaline Phosphatase 85 U/L (38-126); Blood Urea Nitrogen 21 mg/dl (9-20); Calcium 8.9 mg/dl (8.4-10.2); Carbon Dioxide 27 mmol/L (22-30); Chloride 99 mmol/L (98-107); Glucose 132 mg/dl (70-99); Potassium 3.9 mmol/L (3.5-5.1); Sodium 136 mmol/L (135-145); Total Bilirubin 0.9 mg/dl (0.2-1.3); Total Protein 6.6 g/dl (6.3-8.2); eGFR > 60.00
[2024-11-23 17:25] LABS: Troponin I 0.031 ng/ml
[2024-11-23 17:28] LABS: D-Dimer > 20.00 ug/mlFEU (0.00-0.50)
--- NOTE | 2024-11-23 17:48 | EDRN ---
the pt was brought back from the waiting room to ED Bed #11, the pt was on 02 when this RN walked in the room, the pt states that he was on 02 in the waiting room and notified staff that it was getting harder for him to breath, the pt is currently
on 4L NC Sp02 99%, no c/o SOB currently, no c/o chest pain, Dr. Rivas notified of the pt and notified of the pts D-dimer
--- NOTE | 2024-11-23 17:54 | EDRN ---
Dr. Rivas currently at the pts bedside
--- NOTE | 2024-11-23 18:19 | EDRN ---
the pt was brought back from CT scan to ED Bed #11, pt on monitor, the pt has 'slight shortness of breath', this is currently still on 4L NC SP02 100%, Dr. Rivas notified
--- NOTE | 2024-11-23 18:40 | EDRN ---
PTT drawn and sent
[2024-11-23] MEDS: HEPARIN 7600 UNITS IV (18:42)
[2024-11-23] MEDS: HEPARIN 25000 UNITS/250 ML IV (18:43)
--- NOTE | 2024-11-23 18:46 | ED.GENMED ---
History of Present Illness
General
Chief Complaint: Chest Pain
Source: patient and spouse
Time Seen by Provider: 11/23/24 17:52
History of Present Illness
History of Present Illness:
74-year-old male who presents after he developed sudden onset of dizziness, chest pain and difficulty breathing at home. The patient admits that he recently broke his left ankle about a week ago. He did see orthopedics. Patient does admit he had
a DVT in his past after traveling to the [place]. He also states his sister had a pulmonary embolism. He was on blood thinner for some time but they took him off. Patient states he feels little better now but still little short of breath.
states he was definitely not himself and she was concerned. She states he was off and looked ill. She states he thought he was going to .
Past History
Past History
ED Past Medical History: Other (Prostatic hypertrophy and urinary retention, DVT)
ED Past Surgical History: Cholecystectomy
Social History
Personal:
Living: with family
Phy Exam
Physical Exam
Physical Exam:
CONSTITUTIONAL Patient alert and oriented to person, place and time. Well-appearing. Vital signs reviewed.
HEAD atraumatic, normocephalic.
EYES eyelids normal to inspection, Extraocular muscles intact, Conjunctiva normal, Sclera normal.
NECK normal range of motion, Trachea midline, no jugular venous distention.
RESPIRATORY CHEST No respiratory distress noted, Chest expansion equal, Bilateral breath sounds clear.
CARDIOVASCULAR regular and tachycardic, Heart sounds normal.
ABDOMEN abdomen nontender, Bowel sounds normal. No distention.
BACK normal inspection, no obvious deformities
UPPER EXTREMITY range of motion normal, Motor strength normal, no cyanosis, no edema.
LOWER EXTREMITY Motor strength normal, no cyanosis, no edema. Left lower extremity in a splint
NEURO Speech normal, No focal motor deficits, Belén coma scale 15, Memory normal, Cranial Nerves intact to screening exam.
SKIN skin warm, dry, and normal in color.
Scores
Heart Score for Chest Pain Patients
STEMI patient?: Not applicable
Course
Orders/Labs/Results
Orders:
Orders
11/23/24 Dinner
Regular
At Your Request: Full Participation
11/23/24 16:43
Electrocardiogram (*1) Urgent
Reason for Study: Chest Pain
EKG- Treatment ONCE
11/23/24 16:50
CMP [Comprehensive Metabolic Panel] Urgent
Complete Blood Count/With Diff Urgent
D-Dimer Urgent
Troponin I Urgent
11/23/24 18:[address] [CT Chest PE Study] Stat
Comment:
Reason For Exam: cp, sob, elevated ddimer, h/o DVT
11/23/24 18:34
Heparin 7,600 units IV NOW STA
Nursing to Place Non Medication Order As Directed
Physician Order: PTT 6 hours after initial start of Heparin infusion
Above order entered?: Yes
11/23/24 18:37
PTT Urgent
Comment: Obtain baseline before beginning heparin infusion if not already collected
11/23/24 18:45
Heparin 87866 Units/250 ml 25,000 units in 250 ml IV PER PROTOCOL
Weight to be used for heparin protocol in kilograms (kg):: 94.4
Protocol:: DVT/PE
PTT Goal Range to be used:: PTT 73 to 111 seconds
Order type:: Initial
INITIAL Infusion Dose (UNITS/KG/hr) & then follow protocol:: 18 units/kg/hr
Infusion Dose in UNITS/hr & then follow protocol (UNITS/hr):: 1,700
INFUSION RATE in mL/hr & then follow protocol (mL/hr):: 17
For DVT/PE algorithm, re-bolus for low PTT?: Yes
PTT less than or equal to 64 seconds:: Re-bolus 80 units/kg (max 10,000units). Increase by 400 units/hr
(+ 4mL/hr)
PTT 64.1 to 72.9 seconds:: Re-bolus 40 units/kg (max 5,000 units). Increase by 200 units/hr
(+ 2mL/hr)
PTT 73 to 111 seconds:: Target Range. No change in rate.
PTT 111.1 to 130.9 seconds:: Decrease rate by 200 units/hr (- 2 mL/hr)
PTT 131 to 199.9 seconds:: HOLD for 1 hr. Then decrease by 300 units/hr (- 3mL/hr)
PTT greater than or equal to 200 seconds:: HOLD for 2 hrs & Notify Provider. Then decrease by 400 units/hr
(- 4mL/hr)
Lab follow-up:: Each change, PTT q6h until 2 consecutive are therapeutic. Then
PTT daily.
11/23/24 18:46
Heparin 3,800 units IV PRN PRN
Heparin 7,500 units IV PRN PRN
11/23/24 19:33
Admit/Transfer Patient As Directed
Co-Sign Provider:
Level of Care: Inpatient admission
Assign to:: IMU- Intermediate Care
Physician / Group: hospitalist
Diagnosis: pulmonary embolism
Reason for Hospitalization: pulmonary embolism with hypoxia
Expected length of stay greater than two midnights?: Yes
ELOS- Estimated Length of Stay in days: 2
I certify the patient meets the requirements for IP care: Yes
Code Status As Directed
Resuscitation Status: Full Code
PRN Pain Medication Management As Directed
May give lesser potent ordered pain med per pt: Yes
preference::
Protocol:: Medication orders for pain may be administered in a
manner that supports deferring to patient preference
when the pt is:
- Requesting an ordered lesser potent pain medication.
Least to most potent pain medications are defined
as: acetaminophen < NSAID < tramadol < opioids
(morphine, oxycodone, hydromorphone).
- Requesting a lesser dose of the same medication IF
ORDERED.
- Requesting a less intrusive route of administration
if both routes are prescribed by the provider (PO <
IV).
11/23/24 20:12
Acetaminophen [Tylenol] 650 mg PO Q4HPRN PRN
Ondansetron Injectable [Zofran] 4 mg IV Q6HPRN PRN
11/23/24 20:12
Echo 2D MMode Color/Doppler Routine
Reason for Study: pulmonary embolism
PULMONARY CONSULT Routine
Consulting Provider: Manuel Willis
Was physician already notified: Yes
Reason for consult: PE
Heparin Protocol- PTT Orders As Directed
PTT per Heparin protocol: -Obtain CBC and baseline PTT - if not already collected.
-Obtain PTT 6 hours from start of infusion. Then, every 6 hours until 2 consecutive
PTT's are therapeutic. Then, PTT Daily.
-With each rate change, obtain PTT every 6 hours until 2 consecutive PTT's are
therapeutic. Then, PTT Daily.
Activity As Directed
Activity Level: With Assistance
Bladder Scan As Directed
Follow Bladder Retention/Intermittent Cath Algorithm?: Yes
Frequency: Per Retention Algorithm
Comment: as per intermittent urinary catheter algorithm
Bladder Scan As Directed
Follow Bladder Retention/Intermittent Cath Algorithm?: Yes
PRN if no void in __ hours: 6
Frequency: Per Retention Algorithm
If Bladder Scan Result >: 400
then:: Straight cath
Intake/ Output As Directed
Frequency: Per unit guidelines
Notify MD As Directed
Notify physician if: PTT is greater than or equal to 200.
Straight Cath As Directed
Frequency: Per Retention Algorithm
Additional Instructions: as per intermittent urinary catheter algorithm
Straight Cath As Directed
Frequency: Per Retention Algorithm
Additional Instructions: straight cath as needed per acute urinary retention algorithm for 24 hrs
Additional Instructions: for bladder scan greater than 400 mL
Vital Signs As Directed
Frequency: Per unit guidelines
O2 Therapy [RESP] Routine
Titrate/Wean O2 to maintain O2 sat greater than (%): 90
Pulse Ox/cont/shift [RESP] Routine
Quantity: 1
Special Instructions: check O2 Sat Q8 hours and at each change in oxygen liter flow and FiO2
Pt Eval And Treat Routine
Activity Level: With Assistance
11/24/24 00:45
PTT Urgent
11/24/24 08:00
Pantoprazole [Protonix] 40 mg PO DAILY
11/25/24 06:00
Complete Blood Count/No Diff Q2D
Comment: notify provider: Platelet count < 130,000 or decrease by 50% from baseline
11/27/24 06:00
Complete Blood Count/No Diff Q2D
Comment: notify provider: Platelet count < 130,000 or decrease by 50% from baseline
11/29/24 06:00
Complete Blood Count/No Diff Q2D
Comment: notify provider: Platelet count < 130,000 or decrease by 50% from baseline
12/01/24 06:00
Complete Blood Count/No Diff Q2D
Comment: notify provider: Platelet count < 130,000 or decrease by 50% from baseline
12/03/24 06:00
Complete Blood Count/No Diff Q2D
Comment: notify provider: Platelet count < 130,000 or decrease by 50% from baseline
12/05/24 06:00
Complete Blood Count/No Diff Q2D
Comment: notify provider: Platelet count < 130,000 or decrease by 50% from baseline
12/07/24 06:00
Complete Blood Count/No Diff Q2D
Comment: notify provider: Platelet count < 130,000 or decrease by 50% from baseline
12/09/24 06:00
Complete Blood Count/No Diff Q2D
Comment: notify provider: Platelet count < 130,000 or decrease by 50% from baseline
Abnormal Lab Results
11/23/24
16:50
RBC 4.35 L 10^6/uL
(4.70-6.10)
MCV 97.0 H fL
(80.0-94.0)
MCH 32.6 H pg
(27.0-31.0)
MPV 10.5 H fL
(7.4-10.4)
D-Dimer > 20.00 H ug/mlFEU
(0.00-0.50)
BUN 21 H mg/dl
(9-20)
Glucose 132 H mg/dl
(70-99)
11/23/24 16:50
11/23/24 16:50
Vital Signs
Initial and Last Documented VS:
Initial Vital Signs
Temp Pulse Resp BP Pulse Ox
99.0 F 92 16 104/73 97
11/23/24 16:43 11/23/24 16:43 11/23/24 16:43 11/23/24 16:43 11/23/24 16:43
Last Documented Vital Signs
Temp Pulse Resp BP Pulse Ox
98.6 F 108 17 104/77 97
11/23/24 17:52 11/23/24 22:00 11/23/24 22:00 11/23/24 22:00 11/23/24 22:00
MDM/Problems Addressed
MDM/Problems Addressed:
Bilateral pulmonary embolism
*Radiology
Radiology exam reviewed: preliminary read by ED provider (Bilateral pulmonary emboli)
*Pulse Oximetry
Patient hypoxic: yes
*EKG
Interpreted by ED Provider?: Yes
Interpretation: normal
Rate: normal
Rhythm: sinus
[place]: normal axis
QRS Pattern: normal QRS
Ischemia: no ischemia
*Sail Cutter Interpretation
Rate: normal
Interpretation: normal
Rhythm: sinus
*Critical Care Note
Total Time (30-74mins, 75-104mins- exclusive of procedures): 40 minutes
Data Reviewed
Source: patient and spouse
Patient Management
Discussion with other providers: Hospitalist
Escalation/DeEscalation of care consider admission/obs:
Moderate to significant clot burden bilaterally. IV heparin given. Seen by hospitalist. Admit
ED Attending Note
-
Portions of this chart may have been created with voice recognition software.� Occasional wrong word or��sound alike� substitutions may have occurred due to the inherent limitations of voice recognition software.
Discharge Plan
Departure
Patient Disposition: Admit
Date of Disposition: 11/23/24
Time of Disposition: 18:49
Admit to: Telemetry
Presentation/result/management discussed w/ accepting MD/DO: Hospitalist
Discharge Problem:
Pulmonary embolism
Interventions
Interventions:
*Risk Screen - Suicide Last Done: 11/23/24 16:43
*General Assessment Last Done: 11/23/24 17:52
*Neglect/Abuse Screening Last Done: 11/23/24 16:43
ED- Fall Risk Assessment Last Done: 11/23/24 17:52
*ED COVID-19 Vaccine History Last Done: 11/23/24 17:52
ED- Cardiac Assessment Last Done: 11/23/24 17:52
[2024-11-23 18:54] LABS: APTT 30.3 Sec (23.4-35.0)
--- NOTE | 2024-11-23 19:23 | HPS.HSE ---
Family Physician
-
Family Physician:
Chief Complaint
-
Chest pain and SOB
History of Present Illness
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
Patient was seen in the emergency department last week with tib-fib nondisplaced fracture status post splinting. He already had some ambulatory difficulties at baseline. He was clearly more immobile actually has difficulty going up and down stairs
at home. They did not recall any lower extremity swelling but leg was in a splint. He apparently was in usual state of health up until this morning when spouse found him more confused than usual. The patient himself felt as though he was going to
pass out. Spouse also found him breathing very heavily and thought she was severely short of breath. Patient complained of chest pain in the substernal region. EMS was called and was brought to the emergency department.
Patient had a history of DVT in March of this year in the setting of hospitalization for dysautonomia and orthostatic hypotension. He was hospitalized for 2 weeks and he had a left lower extremity DVT at that time. He was treated with heparin in ""hospital and completed a treatment course of oral anticoagulation.
He has a sister who had PE after a plane flight. Patient had a genetic testing and he was negative for a genetic hypercoagulable disorder. He apparently also was negative for acquired hypercoagulable abilities such as lupus anticoagulants.
In the ED today he was afebrile, blood pressure was stable at 135/75 with a pulse of 76. He was satting 97% on 4 L. His troponin was 0.03. ECG showed normal sinus rhythm at a rate of 92. CBC was unremarkable. Electrolytes BUN/creatinine were
all normal. Patient had a CT PE study which showed multiple segmental and subsegmental PEs affecting the left lower lobe, right upper lobe and right middle lobe as well as right lower lobe. There is signs of mild heart strain.
Medical History
Past Medical History
Past Medical History: Reports Other (Dysautonomia previously on midodrine but now control behaviorally.)
Additional Past Medical History:
Prior history of ehrlichiosis, Lyme disease
Past Surgical History: Reports None
Social History
Tobacco: Non-smoker
Alcohol: None
Drug: None
Personal:
Living: With Family
Employment: Retired
Family History
Family History: Not pertinent
Allergies / Home Medications
Allergies reflects when Allergies were last updated in [facility].
Home Medications with original date entered in [facility]
Allergy/Medication List:
Allergies
Allergy/AdvReac Type Severity Reaction Status Date / Time
No Known Allergies Allergy Verified 11/17/24 16:14
Home Medications
No Meds [No Current Medications] 11/23/24
Review of Systems
-
History Source: Patient and Family
Constitutional: Reports No Symptoms
EENT: Reports No Symptoms
Respiratory: Reports Trouble Breathing
Cardiac: Reports Chest Pain
Abdomen/GI: Reports No Symptoms
: Reports No Symptoms
Musculoskeletal: Reports No Symptoms
Skin: Reports No Symptoms
Neurological: Reports No Symptoms
Endocrine: Reports No Symptoms
Hematologic/Lymphatic: Reports No Symptoms
Psych: Reports No Symptoms
Physical Exam
Vital Signs
Vital Signs
Temp Pulse Resp BP Pulse Ox
98.6 F 97 17 125/81 98
11/23/24 17:52 11/23/24 19:00 11/23/24 19:00 11/23/24 19:00 11/23/24 19:00
Physical Exam
General: Comfortable
HEENT: NormoCephalic, Anicteric, Moist mucous membranes, Atraumatic, PERRLA and [place] Conjunctivae
Respiratory: Clear
Cardiac: S1/S2 and Regular Rhythm
Breast: Deferred by me
GI: Soft, Non Tender, Non Distended and Normal Bowel Sounds
Rectal: Deferred by Provider
Genito-urinary: Deferred by me
Musculoskeletal: No Clubbing and No Cyanosis
Skin: Warm
Neuro: AO x 3 and Nonfocal/grossly intact
Hematologic/Lymphatic: No Lymphadenopathy
Psych: Calm
Laboratory Results
-
11/23/24 16:50
11/23/24 16:50
Laboratory Results
APTT 30.3 Sec (23.4-35.0) 11/23/24 18:37
Total Bilirubin 0.9 mg/dl (0.2-1.3) 11/23/24 16:50
AST 28 U/L (17-59) 11/23/24 16:50
ALT 26 U/L (0-50) 11/23/24 16:50
Alkaline Phosphatase 85 U/L (38-126) 11/23/24 16:50
Troponin I 0.031 ng/ml 11/23/24 16:50
Data Reviewed
-
CT Scan: Report Reviewed by me
Medical Tests (Nuc Med, Echo, EKG etc): Image Personally Visualized and interpreted
Lab Data: Labs Reviewed by me
Old Records: Reviewed
Impression/Plan
-
IMPRESSION:
Patient with h/o DVT in March in setting of prolonged hospitalization with orthostatic hypotension, recent Left LE Tib/Fib fracture one week ago s/p splinting presenting with chest pain and SOB and found to have a PEs with moderate clot burden. Mild
RV strain on CT. Normal troponins and ECG. HD stable but on supplemental oxygen.
PLAN:
1. PE - Moderate risk profile
- admit to imu
- started heparin in ED, will continue heparin gtt for now
- pain control and antiemetics
- supplemental oxygen for now
- echo in am
-pulmonary consulted and notified
2. Dysautonomia - Chronic orthostatic hypotension currently maintained w/o medications and with high oral fluid intake
- fall precautions
- ambulate with assistance
PT evaluation
Code statu - Full Code
[2024-11-24] VITALS (23 sets, daily range): BP systolic 90–134; BP diastolic 65–99; BMI 26.7
[2024-11-24 02:07] LABS: APTT > 200 Sec (23.4-35.0)
--- NOTE | 2024-11-24 07:30 | EDRN ---
the pt was received from previous shift production supervisor nurse Iqra SIMMONS, the pt is resting in stretcher in the lowest position, side rails up x2, call chun within reach, HOB elevated, no s/s of distress, no c/o chest pain, no c/o SOB, VS WNL, the pt is
currently on 4L NC Sp02 98%, Heparin gtt currently still running at 1300units/hour, the pt has been peeing in the urinal, PT has not been in yet to see the pt, splint in place on left lower leg, the pt denies needing anything at this time, awaiting
for the pts breakfast tray to arrive, will continue to monitor the pt closely
--- NOTE | 2024-11-24 10:02 | EDRN ---
the pts PTT was drawn and sent, the pts breakfast arrived and this RN provided the breakfast tray for the pt, the pt has been using the urinal to go to the bathroom, the pt is resting in stretcher in the lowest position, side rails up x2, call chun
within reach, HOB elevated, no s/s of distress, VS WNL, the pt denies needing anything at this time, will continue to monitor the pt closely
[2024-11-24 10:08] LABS: APTT 65.3 Sec (23.4-35.0)
[2024-11-24] MEDS: HEPARIN 3800 UNITS IV ×2 (10:16→23:23)
[2024-11-24] MEDS: PROTONIX 40 MG PO (11:05)
[2024-11-24] MEDS: HEPARIN 25000 UNITS/250 ML IV (11:09)
--- NOTE | 2024-11-24 11:25 | W.PN.HOSP.TC ---
Today's Communication/Plan
-
Assessment / Plan
Assessment / Plan
Gen-AAOx3, NAD
HEENT-NC, AT, anicteric, clear oral mm
Neck-supple
CV-reg, no M, +S1/S2
Lungs-clear B/L
Abd-soft, NT, ND
Musculoskeletal-no edema, no deformity
Skin-warm and dry
Neuro-grossly non-focal
Psych-calm, cooperative
Mr. Torrez is a 74-year-old male with a history of dysautonomia (believed secondary to tickborne illness), ambulatory dysfunction, enlarged prostate (status post robotic partial prostatectomy 12/08/2021), laparoscopic cholecystectomy (04/06/2015),
DVT (March 2024, completed anticoagulation course), and recent left tib-fib nondisplaced fracture (status post splinting 1 week prior to admission) who presented with shortness of breath and chest discomfort. His found him confused and
extremely short of breath. CT angiography showed multiple segmental and subsegmental PEs involving the left lower lobe, right upper lobe, right middle lobe, and right lower lobe. He has been started on anticoagulation with IV heparin drip and
admitted for further evaluation and management. Of note, he has a sister who had a PE after a plane flight, at which time he underwent genetic testing and was negative for genetic hypercoagulable disorder and negative for acquired hypercoagulable
disorders.
Acute pulmonary emboli:
-Scattered segmental and subsegmental PEs bilaterally
-Appears provoked in the setting of recent immobilization with left tib-fib fracture which is currently splinted (did not undergo surgical intervention)
-Continue anticoagulation with IV heparin
-Reportedly underwent hypercoagulable workup previously and is negative for genetic and acquired hypercoagulable disorders
-Echocardiogram pending
-To be evaluated by pulmonology
-Will need follow-up with hematology considering this is his second occurrence this year
CODE STATUS: Full code
Anticipated Discharge: 24 - 48 hours
Subjective/Interval History
-
Date of Service: November 24, 2024
Patient was seen and examined at bedside this morning. He has been started on IV heparin drip for multiple pulmonary emboli. No current difficulty breathing or chest discomfort.
Objective Data
-
Labs:
Laboratory Results
11/24/24 11/24/24 11/24/24
00:39 08:07 09:49
APTT > 200 H* Cancelled 65.3 H
11/24/24
16:15
APTT Pending
Vital Signs:
Vital Signs
Temp Pulse Resp BP Pulse Ox
97.6 F 84 16 115/77 98
11/24/24 07:10 11/24/24 10:30 11/24/24 10:30 11/24/24 10:00 11/24/24 10:30
Review of Systems
-
History Source: Patient
All other systems: Reviewed and negative
Physical Exam
-
General: No Apparent Distress
--- NOTE | 2024-11-24 11:30 | EDRN ---
the pt is resting in stretcher in the lowest position, side rails up x2, call chun within reach, HOB elevated, no s/s of distress, VS WNL, the pt is has no c/o chest pain, no c/o SOB, the pt is currently still on 4L NC Sp02 98%, Heparin gtt
currently still running, will continue to monitor the pt closely
--- NOTE | 2024-11-24 14:33 | CON.PUL ---
Consultation
Consultation Request
Date/Time Consultation Requested: 11/24/2024
Date/Time Consultation Performed: 11/24/2024
Reason for Consultation: Acute PE
Medical History
-
History of Present Illness:
History obtained from the patient, at bedside and reviewing the chart. 74-year-old male with history of dysautonomia thought to be from early ketosis in the past, history of prostate enlargement status post prostatectomy, history of DVT March
2023 following left leg fracture, now with intermittent lightheadedness, dizziness. Of note patient had a left tib-fib fracture 1 week ago, remains in the cast. Patient got short of breath just going to the bathroom yesterday. With this he had
some lightheadedness. He denies chest pain, jaw pain. For this reason he brought himself in the [facility] where upon arrival, afebrile, pulse 92, breathing at 16, blood pressure 104/73, 97%. Per ED records, patient did have some chest
pain in the substernal region. CT chest was obtained which ruled bilateral PE, mild right heart strain. Patient started on heparin therapy. We are asked to help from pulmonary standpoint
states that in retrospect, over the past few weeks he has been complaining of more shortness of breath than usual.
.
PMH: Dysautonomia followed by cardiology, history of syncope in the past, lung disease, ehrlichiosis hospitalized for 2 weeks in [place] in 2021. History of DVT March 2024 following left knee fracture on anticoagulation for short period. History of
BPH with prostatectomy in the past
Past Medical History
Past Medical History: None (See HPI)
Past Surgical History: None (See HPI)
Social History
Tobacco: Non-smoker
Alcohol: None
Drug: None
Personal:
Living: With Family
Employment: Retired (Builder)
Family History
Family History: Other (Family history positive for cervical/uterine cancer and sister with history of blood clot following travel)
Allergies / Home Medications
Allergies
Allergy/AdvReac Type Severity Reaction Status Date / Time
No Known Allergies Allergy Verified 11/17/24 16:14
Home Medications
�Medication �Instructions �Recorded �Confirmed �Last Taken �Type
No Meds [No Current Medications] 11/23/24 11/23/24 Unknown History
Review of Systems
-
All other systems: Negative unless noted
Vitals / Labs / Diagnostic Testing
Vital Signs
Temp Pulse Resp BP Pulse Ox
97.6 F 84 16 115/77 98
11/24/24 07:10 11/24/24 10:30 11/24/24 10:30 11/24/24 10:00 11/24/24 10:30
Lab Data
11/23/24 16:50
11/23/24 16:50
Laboratory Results
11/23/24 11/24/24 11/24/24
18:37 00:39 08:07
APTT 30.3 > 200 H* Cancelled
11/24/24
09:49
APTT 65.3 H
Diagnostic Testing:
Physical Exam
-
HEENT: Normocephalic and Anicteric
Cardiovascular: S1/S2, Regular Rhythm, Murmur (n), Rub (n) and Peripheral Edema (Left lower extremity cast)
Respiratory: Wheeze (n), Rales (n), Rhonchi (n) and Non-Labored Respirations
GI: Soft, Non Distended and Non Tender
Neurology: Awake, Alert, No Motor Deficits (Able to sit up without assistance) and Other (Cranial nerves nonfocal)
Skin: Good Color
General: Comfortable
Assessment
-
74-year-old male with recent left tib-fib fracture 1 week ago in the splint, with intermittent lightheadedness, chest pain, shortness of breath, found to have bilateral PE with mild RV strain. We are asked to help from pulmonary standpoint
Acute bilateral PE
Mild RV strain
Normal cardiac biomarkers
Hemodynamically stable
Elevated D-dimer
History of DVT left lower extremity March 2024
Thought to be provoked after left leg fracture
Cough x 6 months
Tachycardia, improved
Conditions present prior to admission
History of dysautonomia
Chronic intermittent presyncopal symptoms
History of early ketosis
BPH with prostatectomy
History of elevated PSA
Family history of blood clot (sister) following travel
Plan/recommendations
At this time, patient appears to be stable, comfortable. His symptoms have resolved. He is at rest, remains on heparin therapy at this time
Reviewed images at length
There is no evidence of parenchymal abnormality
Reviewed at length pathophysiology of thromboembolic disease
PESI score 102, class III (7.1% 30-day mortality)
Moving forward
Continue with heparin therapy for now
Would prefer continued heparin therapy versus Lovenox 1 mg/kg for the next 48 hours with eventual transition to oral agent, given presyncopal symptoms, RV strain
Presently he is supratherapeutic with heparin
Troponin negative
EKG normal
Await echo
Given second event, suspect he will require long-term anticoagulation, however both episodes appear to be provoked
May benefit from outpatient hematology evaluation
Patient has never had a colonoscopy
Elevated PSA in the past, BPH with prostatectomy
Would recommend age-appropriate cancer screening
Reviewed risks and ramifications of thromboembolic disease
Reviewed limitations
Would recommend pulmonary follow-up in 3 months post discharge
Reviewed with patient, at bedside
All questions answered
We will follow
--- NOTE | 2024-11-24 15:46 | EDRN ---
the pts approached the nurses station and notified this RN that the pts lunch never came, this RN called the kitchen and stated that pts lunch tray was scanned out and sent to the ER, this RN searched the ED and could not find the pts lunch
tray, this RN apologized to the pt and the pts and notified the charge nurse, this RN offered the pts an ER lunch box
--- NOTE | 2024-11-24 16:14 | CM ---
CM met with pt and spouse bedside
They reside in a restored barn with 18STE
Full flight of 13 narrow semi [place] steps up to 2nd floor
Pt is typically indep with his ADLs
He has crutches and a shower chair
Of late, he has been using crutches due to a recent fx and currently attending outpt therapy at
He has hx with VN through [place], he was issued a WW while hospitalized in [place] this past year and WW was left behind
PCP- [facility] Membreno
Rx- [facility] [address] [address]
PT eval placed and pending
Discharge Disposition- TBD, watch for SNF needs due to [place] to home
--- NOTE | 2024-11-24 16:18 | EDRN ---
PTT drawn and sent
--- NOTE | 2024-11-24 16:32 | EDRN ---
the pt is resting in stretcher in the lowest position, side rails up x2, call chun within reach, HOB elevated, no s/s of distress, no c/o SOB, no c/o chest pain, VS WNL, the pt is currently still on 4L NC Sp02 98%, awaiting for PTT results, Heparin
gtt currently still running, this RN apologized to the pt and the pts again due to the pts lunch tray not being delivered by the kitchen, this RN offered the pt an ER lunch box again and the pt did not want it, this RN also notified the pts
that the cafateria was open, the charge nurse is aware that the lunch trays did not get delivered, will continue to monitor the pt closely
[2024-11-24 16:40] LABS: APTT 133.8 Sec (23.4-35.0)
--- NOTE | 2024-11-24 16:59 | EDRN ---
the pts brought him lunch from the cafateria, this RN apologized to the pt and the pts again about the pts lunch order
--- NOTE | 2024-11-24 18:00 | EDRN ---
this RN cleaned the pt with bath wipes, changed the pts electrodes, changed the pts gown and linens, repositioned the pt for comfort
--- NOTE | 2024-11-24 18:38 | EDRN ---
the pts dinner arrived and this RN brought it to the pt, the pt is sitting up in the stretcher eating his dinner, the pts is currently at the pts bedside, VS WNL, the pt denies needing anything at this time, will continue to monitor the pt
closely
--- NOTE | 2024-11-24 19:00 | EDRN ---
Report received, introduced myself to patient, patient using urinal, emptied for him after, patient provided with a drink of water and a war blanket, no other concerns at this time, call chun in reach.
--- NOTE | 2024-11-24 20:31 | EDRN ---
Report to Michelle Sage
--- NOTE | 2024-11-24 23:03 | EDRN ---
Oxygen decreased from 4 lpm to 2 lpm because pulse ox high 90's and pt does not have sob/cp.
[2024-11-24 23:04] LABS: APTT 64.3 Sec (23.4-35.0)
[2024-11-25] VITALS (16 sets, daily range): BP systolic 95–146; BP diastolic 59–88; PULSE 82; O2SAT 98
[2024-11-25 06:11] LABS: APTT 112.4 Sec (23.4-35.0)
[2024-11-25 06:21] LABS: Hematocrit 39.7 % (39.0-52.0); Hemoglobin 13.3 g/dL (13.0-18.0); Mean Corp Hgb Conc. 33.5 g/dL (33.0-37.0); Mean Corpuscular Hgb 32.5 pg (27.0-31.0); Mean Corpuscular Volume 97.1 fL (80.0-94.0); Mean Platelet Volume 10.7 fL (7.4-10.4); Platelet Count 143 10^3/uL (130-400); Red Blood Cell Count 4.09 10^6/uL (4.70-6.10); Red Cell Dist. Width 12.3 % (11.5-14.5); White Blood Cell Count 8.1 10^3/uL (4.8-10.8)
[2024-11-25] MEDS: HEPARIN 25000 UNITS/250 ML IV (06:42)
--- NOTE | 2024-11-25 09:01 | W.PN.PUL3 ---
Today's Communication / Plan
-
Systemic anticoagulation with transition to NOAC by tomorrow, preferably Eliquis
Case management consult to evaluate for affordability of Eliquis
PT/OT
Pain control
Carefully allow patient to be up out of bed given his dysautonomia with fall risk given recurrence of falls and now with acute PE and recent LLE acute fibular fracture
Nonweightbearing to LLE
Maintain SpO2 >90-94%
Start Tessalon Perles + nasal Metter [place] for cough
Outpatient office follow-up for full PFTs
Recommend outpatient hematology evaluation as well given this is his second VTE event
Pulmonary service will continue to follow along
Assessment
-
74-year-old male with recent left tib-fib fracture 1 week ago in the splint, with intermittent lightheadedness, chest pain, shortness of breath, found to have bilateral PE with mild RV strain. We are asked to help from pulmonary standpoint
Acute bilateral PE
Mild RV strain
Normal troponin
Hemodynamically stable
Elevated D-dimer (>20 ug/mlFEU)
History of DVT left lower extremity March 2024
Thought to be provoked after left leg fracture while in [place] in the setting of preceding plane ride
Cough x 6 months
Tachycardia - now resolved
Recent acute fracture of proximal left fibula diagnosed on 11/17/2024 s/p fall on ice - no surgical intervention recommended at that time
Conditions present prior to admission
History of dysautonomia
Chronic intermittent presyncopal symptoms
History of early ketosis
BPH with prostatectomy
History of elevated PSA
Family history of blood clot (sister) following travel
Plan/recommendations
At this time, patient appears to be stable, comfortable. His symptoms have resolved. He is at rest, remains on heparin therapy at this time
here is no evidence of parenchymal abnormality on CTA chest from 11/23/2024
Reviewed at length pathophysiology of thromboembolic disease
PESI score 102, class III (7.1% 30-day mortality)
Moving forward
Continue with heparin therapy for now
Would prefer continued heparin therapy for the >24 hrs with eventual transition to oral agent, given presyncopal symptoms, RV strain
Consult case management to assure that NOAC is affordable, preferably Eliquis
Troponin negative
EKG normal
Echo done today showing normal RV size and systolic function with mildly elevated PASP at 39 mmHg; also normal LVEF at 55 to 60% with indeterminate diastolic function with mild concentric LVH
Check LE duplex to eval for DVT
Given second event, suspect he will require long-term anticoagulation, however both episodes appear to be provoked
Recommend outpatient hematology evaluation
PT/OT
Patient has never had a colonoscopy
Elevated PSA in the past, BPH with prostatectomy
Would recommend age-appropriate cancer screening
Patient recently fell on ice and suffered a left fibula proximal fracture. Patient saw orthopedic surgery in the office on 11/18/[address] Velarde and was recommended to not bear weight, and no acute surgical intervention was recommended; continue
follow-up as an outpatient with orthopedic surgery
Reviewed risks and ramifications of thromboembolic disease
Reviewed limitations
Would recommend pulmonary follow-up post discharge
Reviewed with patient, at bedside
All questions answered
We will follow
Total time spent today was 38 minutes for this encounter. Time includes reviewing laboratory test/imaging results, reviewing pertinent medical records, obtaining and reviewing medical history, performing an appropriate exam, ordering medications,
tests and procedures. Time also includes documentation of this encounter, coordinating patient care and communicating with other healthcare professionals. Total time does not include separately billed tests performed on this date of service.
Subjective Data
-
Date of Service:
Date of Service: November 25, 2024
Chief Complaint: Pulmonary Follow Up
Subjective:
Patient seen and evaluated today at bedside. Patient's , Nallely, at bedside. All questions were answered. Patient currently denies shoulder pain, chest pain, or shortness of breath. Currently on room air breathing comfortably. He continues to
have a cough that he has had since last summer. Patient currently saturating 98% on room air and BP 125/74.
Review of Systems
General: Other (Negative unless mentioned above)
Objective Data
Data Reviewed
Vital Signs / I&O / Oxygen:
Vital Signs
Temp Pulse Resp BP Pulse Ox
98.2 F 70 12 104/76 99
11/24/24 22:34 11/25/24 04:00 11/24/24 17:00 11/25/24 04:00 11/24/24 22:34
Intake and Output
11/24/24 11/25/24 11/26/24
06:59 06:59 06:59
Intake Total 250 / 250
Output Total 750 / 750
Balance -500 / -500
SaO2 99
Nasal Cannula flow liters per 4
minute
Physical Exam
General: Respiratory Distress (negative), Comfortable, Chills (negative) and Sweats (negative)
HEENT: Normocephalic, Anicteric and Moist Mucous Membranes
Cardiovascular: S1-S2 and Peripheral Edema (negative)
Respiratory: Wheeze (negative), Rhonchi (negative), Non-Labored Respirations, Accessory Resp Muscle Use (negative) and Other (Coarse breath sounds heard bilaterally)
GI: Soft, Non Distended, Non Tender and Normal Bowel Sounds
Neurology: AO x 3 and Tremors (negative)
Skin: Warm, Dry, Cyanosis (negative), Jaundice (negative) and Other (Bandage on left lower extremity)
Labs/Micro/Reports
Lab Data
11/25/24 05:37
11/23/24 16:50
Laboratory Results
11/24/24 11/24/24 11/24/24
09:49 16:15 22:44
APTT 65.3 H 133.8 H 64.3 H
11/25/24 11/25/24
00:00 05:37
APTT Cancelled 112.4 H
[2024-11-25] MEDS: PROTONIX 40 MG PO (10:04)
--- NOTE | 2024-11-25 10:09 | CM ---
Addendum entered by Shahla Monae RN 11/26/24 11:54:
CM spoke with patient's who is agreeable to additional SNF placement options. Patient is medically ready for discharge today.
CM sent referrals to [facility], [facility] and [facility].
Patient has been accepted to [facility]. CM confirming bed availability.
Original Note:
CM received call from patient's . had multiple concerns regarding patient's safety in the hospital. SHe stated that she feels patient is confused and is a fall risk because of impulsively getting up. expressed that she had care
concerns, but she did not want to speak with records manager at this time.
stated that she cannot care for patient at home and wants him placed in [facility]. CM sent referral via [facility]. CM is pending PT notes, and CM advised that PT will have to evaluate him.
CM will remain available as needed.
--- NOTE | 2024-11-25 14:14 | W.PN.HOSP.TC ---
Today's Communication/Plan
-
Continue IV heparin drip
Likely able to transition to Eliquis tomorrow
Monitor vitals
Partial weightbearing with crutch to LLE
Assessment / Plan
Assessment / Plan
Mr. Torrez is a 74-year-old male with a history of dysautonomia (believed secondary to tickborne illness), ambulatory dysfunction, enlarged prostate (status post robotic partial prostatectomy 12/08/2021), laparoscopic cholecystectomy (04/06/2015),
DVT (March 2024, completed anticoagulation course), and recent left tib-fib nondisplaced fracture (status post splinting 1 week prior to admission) who presented with shortness of breath and chest discomfort. His found him confused and
extremely short of breath. CT angiography showed multiple segmental and subsegmental PEs involving the left lower lobe, right upper lobe, right middle lobe, and right lower lobe. He has been started on anticoagulation with IV heparin drip and
admitted for further evaluation and management. Of note, he has a sister who had a PE after a plane flight, at which time he underwent genetic testing and was negative for genetic hypercoagulable disorder and negative for acquired hypercoagulable
disorders.
#Acute pulmonary emboli
#Acute hypoxemic respiratory failure
#Recurrent DVT of LLE
-CTA thorax scattered segmental and subsegmental PEs bilaterally; provoked secondary to left tib�fib fracture with splinting (no surgical correction)
-Patient also with previous provoked DVT of the same extremity for which he completed a course of anticoagulation; negative hypercoag workup
-CTA with some signs of mild RV strain; echocardiogram with mild TR, no RV dilation or systolic dysfunction
-Was started on IV heparin drip for anticoagulation on admission
-As of this morning has been titrated to room air; remains hemodynamically stable
Plan
-Continue IV heparin drip for now
-Plan to transition to DOAC as early as tomorrow morning
-Will likely need lifelong anticoagulation due to recurrence
-Should have follow-up with furniture shampooer at [place] for consideration of repeat hypercoagulable workup
-Monitor vitals
#Dysautonomia
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
-Was previously on midodrine for chronically low blood pressure
-As of now his autonomic state seems fairly stable
#Left tibial fibular fracture
-Seen in the ED on 11/17/2024 for fracture of LLE
-Was placed in sugar-tong splint with partial weightbearing advised on crutches
-Has orthopedic follow-up as OP
-Continue analgesics and partial weightbearing
#BPH s/p partial prostatectomy (12/08/2021)
DVT prophylaxis: IV heparin drip
Diet: Regular
CODE STATUS: Full code
Anticipated Discharge: 24 - 48 hours
Subjective/Interval History
-
Date of Service: November 25, 2024
Seen and examined at the bedside. No acute events reported overnight. AFVSS on room air this morning
Labs stable on anticoagulation. States he feels his breathing is improved.
Denies any new complaints. Denies any chest pain or lightheadedness
Objective Data
-
Labs:
Laboratory Results
11/25/24 11/25/24
05:37 12:26
WBC 8.1
Hgb 13.3
Hct 39.7
Plt Count 143
APTT 112.4 H 57.0 H
Vital Signs:
Vital Signs
Temp Pulse Resp BP Pulse Ox
97.6 F 78 18 146/88 99
11/25/24 08:00 11/25/24 08:00 11/25/24 08:00 11/25/24 08:00 11/24/24 22:34
I&O
11/24/24 11/25/24 11/26/24
06:59 06:59 06:59
Intake Total 250 / 250 240 / 240
Output Total 750 / 750 750 / 750
Balance -500 / -500 -510 / -510
Review of Systems
-
History Source: Patient
All other systems: Reviewed and negative
Physical Exam
-
General: Well Developed, Well Nourished, No Apparent Distress and Comfortable
HEENT: Normocephalic, Atraumatic, Moist Mucous Membranes and Anicteric
Respiratory: Clear to Auscultation and Non Labored Respirations
Cardiac: Regular Rhythm and S1/S2; Negative Murmur, Rub, JVD or Gallop
GI: Soft, Nontender, Nondistended and Normal Bowel Sounds
Musculoskeletal: No Clubbing, No Cyanosis and No Edema
Skin: Warm, Dry and Normal Turgor; Negative Rash
Neuro: AO x 3 and Nonfocal/Grossly Intact; Negative Tremors
Psych: Calm
Data Reviewed
-
Labs: Labs Reviewed by me and Discussed with Patient
[2024-11-25] MEDS: HEPARIN 7500 UNITS IV (14:54)
[2024-11-25] MEDS: OCEAN, SALINE MIST 50 SPRAYS NASAL (16:56)
[2024-11-25] MEDS: TESSALON PERLES 200 MG PO (20:43)
[2024-11-25] MEDS: OCEAN, SALINE MIST 2 SPRAYS NASAL (20:43)
[2024-11-26] VITALS: BP 116/80
[2024-11-26 02:00] VITALS: BP 103/66
[2024-11-26] MEDS: HEPARIN 25000 UNITS/250 ML IV (03:00)
[2024-11-26 04:00] VITALS: BP 96/66
[2024-11-26 05:56] LABS: APTT 68.4 Sec (23.4-35.0)
[2024-11-26 06:00] VITALS: BP 95/68
[2024-11-26 06:07] LABS: Blood Urea Nitrogen 21 mg/dl (9-20); Calcium 8.7 mg/dl (8.4-10.2); Carbon Dioxide 24 mmol/L (22-30); Chloride 105 mmol/L (98-107); Estimated Creatinine Clearance 86 ml/min; Glucose 104 mg/dl (70-99); Potassium 4.1 mmol/L (3.5-5.1); Sodium 136 mmol/L (135-145); eGFR > 60.00
[2024-11-26] MEDS: HEPARIN 3800 UNITS IV (06:42)
[2024-11-26 06:53] LABS: % Eosinophils 5.3 % (0-6); % Immature Granulocytes 0.3 % (0-0.5); % Lymphocytes 20.7 % (20.5-51.1); % Monocytes 8.6 % (1.7-9.3); % Neutrophils 64.1 % (42.2-75.2); Absolute Basophils 0.1 10^3/uL (0-0.2); Absolute Eosinophils 0.4 10^3/uL (0-0.7); Absolute Lymphocytes 1.5 10^3/uL (1.2-3.4); Absolute Monocytes 0.6 10^3/uL (0.1-0.6); Absolute Neutrophils 4.6 10^3/uL (1.4-6.5); Hematocrit 39.3 % (39.0-52.0); Hemoglobin 13.2 g/dL (13.0-18.0); Mean Corp Hgb Conc. 33.6 g/dL (33.0-37.0); Mean Corpuscular Hgb 32.5 pg (27.0-31.0); Mean Corpuscular Volume 96.8 fL (80.0-94.0); Mean Platelet Volume 10.7 fL (7.4-10.4); Nucleated Red Blood Cells % 0 % (-); Platelet Count 148 10^3/uL (130-400); Red Blood Cell Count 4.06 10^6/uL (4.70-6.10); Red Cell Dist. Width 12.4 % (11.5-14.5); White Blood Cell Count 7.1 10^3/uL (4.8-10.8)
--- NOTE | 2024-11-26 08:04 | W.PN.PUL3 ---
Today's Communication / Plan
-
Transition to NOAC today with Eliquis
Case management consult to evaluate for affordability of Eliquis
PT/OT - awaiting DC to skilled rehab today
Pain control
Carefully allow patient to be up out of bed given his dysautonomia with fall risk given recurrence of falls and now with acute PE and recent LLE acute fibular fracture
Nonweightbearing to LLE
Maintain SpO2 >90-94%
Continue Tessalon Perles + nasal [place] for cough
Outpatient office follow-up for full PFTs
Recommend outpatient hematology evaluation as well given this is his second VTE event
Patient being prepared for discharge home. No additional recommendations at this time. Pulmonary service will now sign off. Outpatient office follow-up will be arranged with Dr. Kinsey, whom he already follows with. Please reconsult if there
are any additional questions/concerns, or if patient's respiratory status deteriorates.
Assessment
-
74-year-old male with recent left tib-fib fracture 1 week ago in the splint, with intermittent lightheadedness, chest pain, shortness of breath, found to have bilateral PE with mild RV strain. We are asked to help from pulmonary standpoint
Acute bilateral PE
Mild RV strain
Normal troponin
Hemodynamically stable
Elevated D-dimer (>20 ug/mlFEU)
Acute left lower extremity DVT involving popliteal vein
History of DVT left lower extremity March 2024
Thought to be provoked after left leg fracture while in [place] in the setting of preceding plane ride
Cough x 6 months
Tachycardia - now resolved
Recent acute fracture of proximal left fibula diagnosed on 11/17/2024 s/p fall on ice - no surgical intervention recommended at that time
Conditions present prior to admission
History of dysautonomia
Chronic intermittent presyncopal symptoms
History of early ketosis
BPH with prostatectomy
History of elevated PSA
Family history of blood clot (sister) following travel
Plan/recommendations
At this time, patient appears to be stable, comfortable. His symptoms have resolved. He is at rest, transitioned off heparin drip onto Eliquis this morning
there is no evidence of parenchymal abnormality on CTA chest from 11/23/2024
Reviewed at length pathophysiology of thromboembolic disease
PESI score 102, class III (7.1% 30-day mortality)
Continue NOAC with Eliquis
Consult case management to assure that NOAC is affordable, preferably Eliquis
Troponin negative
EKG normal
Echo done today showing normal RV size and systolic function with mildly elevated PASP at 39 mmHg; also normal LVEF at 55 to 60% with indeterminate diastolic function with mild concentric LVH
Left lower extremity duplex was positive for left lower extremity DVT involving popliteal vein
Given second event, suspect he will require long-term anticoagulation, however both episodes appear to be provoked
Recommend outpatient hematology evaluation
PT/OT
Patient has never had a colonoscopy
Elevated PSA in the past, BPH with prostatectomy
Would recommend age-appropriate cancer screening
Patient recently fell on ice and suffered a left fibula proximal fracture. Patient saw orthopedic surgery in the office on 11/18/[address] Velarde and was recommended to not bear weight, and no acute surgical intervention was recommended; continue
follow-up as an outpatient with orthopedic surgery
Reviewed risks and ramifications of thromboembolic disease
Reviewed limitations
Would recommend pulmonary follow-up post discharge
Reviewed with patient, at bedside
All questions answered
Patient being prepared for discharge home. No additional recommendations at this time. Pulmonary service will now sign off. Outpatient office follow-up will be arranged with Dr. Kinsey, whom he already follows with. Thank you for allowing us to
be involved in the care of this patient. Please reconsult if there are any additional questions/concerns, or if patient's respiratory status deteriorates.
Total time spent today was 36 minutes for this encounter. Time includes reviewing laboratory test/imaging results, reviewing pertinent medical records, obtaining and reviewing medical history, performing an appropriate exam, ordering medications,
tests and procedures. Time also includes documentation of this encounter, coordinating patient care and communicating with other healthcare professionals. Total time does not include separately billed tests performed on this date of service.
Subjective Data
-
Date of Service:
Date of Service: November 26, 2024
Chief Complaint: Pulmonary Follow Up
Subjective:
Patient seen and evaluated today at bedside. at bedside. All questions were answered. He feels much better and is currently on room air breathing comfortably, saturating 98% with heart rate 89 and BP 108/68. He denies chest pain, SOB,
cough, MUÑIZ, nausea, fevers or chills. According to the he is still a little confused at times but he is better today.
Review of Systems
General: Other (Negative unless mentioned above)
Objective Data
Data Reviewed
Vital Signs / I&O / Oxygen:
Vital Signs
Temp Pulse Resp BP Pulse Ox
97.6 F 67 16 95/68 95
11/26/24 07:00 11/26/24 06:00 11/25/24 16:59 11/26/24 06:00 11/25/24 22:00
Intake and Output
11/25/24 11/26/24 11/27/24
06:59 06:59 06:59
Intake Total 250 / 250 240 / 240
Output Total 750 / 750 750 / 750 750 / 750
Balance -500 / -500 -510 / -510 -750 / -750
SaO2 95
Nasal Cannula flow liters per 4
minute
Physical Exam
General: Respiratory Distress (negative), Comfortable, Chills (negative) and Sweats (negative)
HEENT: Normocephalic, Anicteric and Moist Mucous Membranes
Cardiovascular: S1-S2 and Peripheral Edema (negative)
Respiratory: Clear, Wheeze (negative), Crackles (negative), Rhonchi (negative), Non-Labored Respirations and Accessory Resp Muscle Use (negative)
GI: Soft, Non Distended, Non Tender and Normal Bowel Sounds
Neurology: AO x 3 and Tremors (negative)
Skin: Warm, Dry, Cyanosis (negative), Jaundice (negative) and Other (Bandage with soft cast on left lower extremity)
Labs/Micro/Reports
Lab Data
11/26/24 05:28
11/26/24 05:28
Laboratory Results
11/25/24 11/25/24 11/26/24
12:26 20:55 05:28
APTT 57.0 H 195.0 H* 68.4 H
[2024-11-26 08:26] VITALS: BP 108/68
[2024-11-26] MEDS: TESSALON PERLES 200 MG PO (08:27)
[2024-11-26] MEDS: PROTONIX 40 MG PO (08:27)
[2024-11-26] MEDS: OCEAN, SALINE MIST 2 SPRAYS NASAL (08:28)
[2024-11-26] MEDS: ELIQUIS 10 MG PO (08:50)
--- NOTE | 2024-11-26 11:45 | W.PN.HOSP.TC ---
Today's Communication/Plan
-
Transition to DOAC
Discharge
OP follow-up for hematology and pulmonology
Assessment / Plan
Assessment / Plan
#Acute pulmonary emboli
#Acute hypoxemic respiratory failure
#Recurrent DVT of LLE
-CTA thorax scattered segmental and subsegmental PEs bilaterally; provoked secondary to left tib�fib fracture with splinting (no surgical correction)
-Patient also with previous provoked DVT of the same extremity for which he completed a course of anticoagulation; negative hypercoag workup
-CTA with some signs of mild RV strain; echocardiogram with mild TR, no RV dilation or systolic dysfunction
-Was started on IV heparin drip for anticoagulation on admission
-As of this morning has been titrated to room air; remains hemodynamically stable
Plan
-Transition to Eliquis 10 mg twice daily to complete 7 days
-Starting 12/01/2024 start Eliquis 5 mg twice daily indefinitely
-Will likely need lifelong anticoagulation due to recurrence
-OP follow-up with hematology for hypercoagulable workup
-Monitor vitals
#Dysautonomia
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
-Was previously on midodrine for chronically low blood pressure
-As of now his autonomic state seems fairly stable
#Left tibial fibular fracture
-Seen in the ED on 11/17/2024 for fracture of LLE
-Was placed in sugar-tong splint with partial weightbearing advised on crutches
-Has orthopedic follow-up as OP, 4 weeks after initial eval
-Continue analgesics and partial weightbearing
#BPH s/p partial prostatectomy (12/08/2021)
DVT prophylaxis: DOAC
Diet: Regular
CODE STATUS: Full code
Anticipated Discharge: Today
Subjective/Interval History
-
Date of Service: November 26, 2024
Seen and examined at the bedside. No acute events reported overnight. AFVSS on room air today
CBC remained stable on anticoagulant, transition to DOAC this morning. Patient states he is OP follow-up with orthopedist planned after discharge for his lower extremity fracture DEAL[employer].
He denies any new complaints today. Denies shortness of breath or chest pain. States he feels ready to go home
Objective Data
-
Labs:
Laboratory Results
11/26/24 11/26/24
05:28 12:45
WBC 7.1
Hgb 13.2
Hct 39.3
Plt Count 148
APTT 68.4 H Pending
Sodium 136
Potassium 4.1
Chloride 105
Carbon Dioxide 24
BUN 21 H
Creatinine 0.9
Glucose 104 H
Calcium 8.7
Vital Signs:
Vital Signs
Temp Pulse Resp BP Pulse Ox
97.6 F 71 18 108/68 95
11/26/24 07:00 11/26/24 08:26 11/26/24 08:26 11/26/24 08:26 11/26/24 08:55
I&O
11/25/24 11/26/24 11/27/24
06:59 06:59 06:59
Intake Total 250 / 250 240 / 240
Output Total 750 / 750 750 / 750 950 / 950
Balance -500 / -500 -510 / -510 -950 / -950
Review of Systems
-
History Source: Patient
All other systems: Reviewed and negative
Physical Exam
-
General: Well Developed, Well Nourished, No Apparent Distress and Comfortable
HEENT: Normocephalic, Atraumatic, Moist Mucous Membranes and Anicteric
Respiratory: Clear to Auscultation and Non Labored Respirations
Cardiac: Regular Rhythm and S1/S2; Negative Murmur, Rub or Gallop
GI: Soft, Nontender, Nondistended and Normal Bowel Sounds
Musculoskeletal: No Clubbing, No Cyanosis, No Edema and Other (Left lower extremity in wrapping)
Skin: Warm, Dry and Normal Turgor; Negative Rash
Neuro: AO x 3 and Nonfocal/Grossly Intact
Psych: Calm
--- NOTE | 2024-11-26 13:02 | CM ---
Addendum entered by Shahla Monae RN 11/26/24 13:06:
Patient has been accepted to [facility] [place]:
Report
[phone]
Fax
[phone]
Original Note:
Patient is agreeable to [facility] [place]. CM updated Mariaelena Everett with acceptance by family. Mariaelena will confirm admission for today. CM will await call back,
[2024-11-26] MEDS: OCEAN, SALINE MIST NASAL (13:12)
[2024-11-26 13:44] VITALS: BP 135/85
--- NOTE | 2024-11-26 15:02 | W.DCSUMMARY ---
Discharge Summary
Discharge Data
Date of Admission: 11/23/24
Date of Discharge: 11/26/24
-
Pending Results: No
Hospital Course
74-year-old male with dysautonomia secondary to history of tickborne illness (Lyme versus lipidosis), history of LLE DVT, recent tibial fibular fracture of LLE that presented to the hospital with shortness of breath and worsening swelling in his
left lower extremity. CT PE study showed submassive pulmonary emboli with mild signs of right heart strain. Follow-up echocardiogram without any evidence of RV systolic dysfunction or dilation. Ultrasound of the left lower extremity showed DVT
likely provoked from recent fracture and immobility. Was started on IV heparin drip and transition to Eliquis 10 mg twice daily to complete 7 days. Started on Eliquis 5 mg twice daily after 7 days of 10 mg dosing. Had previous hypercoagulable
workup with last DVT though we recommend he has follow-up with animal husbandry technician for repeat hypercoagulable workup. Likely will need lifelong anticoagulation at this point due to his recurrence of DVT.
For his left lower extremity fracture, occurred prior to arrival. Patient had orthopedic evaluation arranged from last visit. Encouraged him to follow-up as previously scheduled. Worked with physical therapy here who recommended SNF placement.
Case management helped with SNF disposition
Discharge Plan
-
Patient Disposition: Home (Routine Discharge)
Discharge Diagnosis/Procedures: Acute pulmonary embolism
Recurrent DVT of left lower extremity
Recent tibial fibular fracture
Condition: Fair
Diet: No restrictions
Activity: As tolerated
Driving Restrictions: As prior to admission
Bathing Restrictions: None
Blood Work: None
Others Tests: Hypercoagulable workup with hematology (antiphospholipid testing, factor V Leiden testing, prothrombin gene mutations, protein C/S mutations)
Other Services: PT
Activity Restrictions/Additional Instructions:
After discharge from the hospital you should schedule a follow-up appointment with your family doctor. Should be seen in the office within 1 to 2 weeks of discharge from the hospital.
We have provided you a referral to pulmonology. You should contact their office to schedule follow-up appointment within 4 to 6 weeks of discharge
We provided a referral to hematology. Contact their office to schedule appointment for consideration of a hypercoagulable workup (testing for conditions that cause blood to be too thick)
Follow-up with your orthopedist as previously directed (4 weeks after fracture)
Instructions: Pulmonary embolism (blood clot in the lung)
Referrals:
Kong Rolon MD [Family Provider] -
Shasta Carrion MD [Active] - in four to six weeks
Bogdan Kinsey MD [Active] - in four to six weeks
Additional Discharge Medication Instructions: Take Eliquis 10 mg twice daily for 4 more days after discharge from the hospital.
Starting 12/01/2024, take Eliquis 5 mg twice daily indefinitely
Take pantoprazole 40 mg daily to reduce risk of gastrointestinal bleeding while on blood thinners
Prescriptions:
New
Eliquis 5 mg Tablet
10 mg PO BID 4 Days Qty: 16 0RF
Eliquis 5 mg tablet
5 mg PO BID 30 Days Qty: 60 0RF
Rx Instructions:
Start 12/01/2024
pantoprazole 40 mg Tablet,Delayed Release (Dr/Ec)
40 mg PO DAILY 30 Days Qty: 30 0RF
Discharge Orders:
Discharge Patient (As Directed); Ordered 11/26/24
Ordered By: Desean Jordan
Discharge Date and Time
Print Language: KAZAKH
== END 2024-11-26 17:00 | DRG 175 ==
LOC: ED 19:57
PROVIDERS: ADMITTING PHYSICIAN Internal Medicine; ATTENDING PHYSICIAN Internal Medicine; CONSULT PHYSICIAN Internal Medicine Critical Care Medicine; EMERGENCY PHYSICIAN Emergency Medicine; FAMILY PHYSICIAN Internal Medicine
DX: I26.99 Other pulmonary embolism without acute cor pulmonale (principal); J96.01 Acute respiratory failure with hypoxia; I82.402 Acute embolism and thrombosis of unspecified deep veins of left lower extremity; Z86.718 Personal history of other venous thrombosis and embolism; I95.1 Orthostatic hypotension; Z79.01 Long term (current) use of anticoagulants; G90.1 Familial dysautonomia [Riley-Day]
CPT/HCPCS: 71275; 80048; 80053; 84484; 85025; 85027; 85379; 85730; 93005; 93306; 93970; 96365; 96366; 97163; 99291; Q9967

== ENCOUNTER 2025-01-02 15:28 | Emergency (ER) | payer MEDICARE, OTHER, SELFPAY ==
[2025-01-02 15:31] VITALS: BP 109/73
[2025-01-02 19:09] LABS: Urine Albumin Negative (Neg - Trace); Urine Bilirubin Negative (Negative); Urine Character Clear (Clear); Urine Color Yellow; Urine Glucose Negative (Negative); Urine Ketone Negative (Negative); Urine Leukocyte Negative (Negative); Urine Nitrite Negative (Negative); Urine Occult Blood Negative (Negative); Urine Urobilinogen Negative (Neg - 1+)
[2025-01-02 19:34] LABS: % Basophils 0.5 % (0-2); % Eosinophils 2.9 % (0-6); % Immature Granulocytes 0.4 % (0-0.5); % Lymphocytes 18.7 % (20.5-51.1); % Monocytes 8.3 % (1.7-9.3); % Neutrophils 69.2 % (42.2-75.2); Absolute Eosinophils 0.2 10^3/uL (0-0.7); Absolute Lymphocytes 1.5 10^3/uL (1.2-3.4); Absolute Monocytes 0.7 10^3/uL (0.1-0.6); Absolute Neutrophils 5.6 10^3/uL (1.4-6.5); Hematocrit 39.3 % (39.0-52.0); Hemoglobin 13.5 g/dL (13.0-18.0); Mean Corp Hgb Conc. 34.4 g/dL (33.0-37.0); Mean Corpuscular Hgb 33.2 pg (27.0-31.0); Mean Corpuscular Volume 96.6 fL (80.0-94.0); Mean Platelet Volume 10.8 fL (7.4-10.4); Nucleated Red Blood Cells % 0 % (-); Platelet Count 160 10^3/uL (130-400); Red Blood Cell Count 4.07 10^6/uL (4.70-6.10); Red Cell Dist. Width 11.9 % (11.5-14.5)
[2025-01-02 19:41] LABS: Lactic Acid 0.7 mmol/L (0.7-2.0)
[2025-01-02 19:49] LABS: ALT (SGPT) 20 U/L (0-50); AST (SGOT) 23 U/L (17-59); Albumin 4.2 g/dl (3.5-5.0); Alkaline Phosphatase 81 U/L (38-126); Blood Urea Nitrogen 18 mg/dl (9-20); Carbon Dioxide 27 mmol/L (22-30); Chloride 101 mmol/L (98-107); Glucose 115 mg/dl (70-99); Potassium 4.2 mmol/L (3.5-5.1); Sodium 135 mmol/L (135-145); Total Protein 6.8 g/dl (6.3-8.2); eGFR > 60.00
[2025-01-02 19:50] LABS: Lipase 161 U/L (23-300)
[2025-01-02 22:01] VITALS: BP 93/57
--- NOTE | 2025-01-02 22:05 | ED.GENMED ---
History of Present Illness
General
Chief Complaint: Bowel Problem
Source: patient and spouse
Exam Limitations: none
Time Seen by Provider: 01/02/25 17:57
Nursing documentation reviewed up to this point in time: agreed with
History of Present Illness
History of Present Illness:
74-year-old male past medical history of recent broken leg previous PE on blood thinner dementia presenting to the emergency department today with concerns of difficulty with bowel movement. Has had a few days where he could not have a bowel
movement and feels a fullness to his rectum. Denies any chest pain shortness of breath or additional concerns otherwise
Past History
Past History
ED Past Medical History: Other (Prostatic hypertrophy and urinary retention, DVT)
ED Past Surgical History: Cholecystectomy
Social History
Personal:
Living: with family
Review of Systems
Review of Systems
Allergies reviewed?: Yes
All Other Systems: ROS reviewed and negative except as documented in HPI and ROS
Phy Exam
Physical Exam
Physical Exam:
GENERAL: Alert , in no apparent distress
EYE: pupils equal and reactive
NECK: Supple, no significant adenopathy.
ENT: o/p clr, mmm.
CARDIAC: Regular rate and rhythm .
LUNGS: Clear breath sounds bilaterally, no acute respiratory distress, no wheezes/rales/rhonchi
ABDOMEN: Rectal examination revealing a large fecal impaction. This was disimpacted manually with full relief of symptoms otherwise abdomen soft, without focal tenderness, no r/g, no cvat
NEUROLOGICAL: Alert and oriented, no focal neuro deficits
SKIN: Warm and dry, skin intact.
MUSCULOSKELETAL: No edema, well perfused.
PSYCH: Normal and appropriate interaction.
Course
Orders/Labs/Results
Orders:
Orders
01/02/25 18:36
CT Abd/Pel (IV only)-DH only Urgent
Comment:
Reason For Exam: diffuse abd pain no BM
01/02/25 18:43
Complete Blood Count/With Diff Urgent
Comprehensive Metabolic Panel Urgent
Lactic Acid Urgent
Lipase Urgent
01/02/25 19:01
Urinalysis Reflex To Culture Urgent
Date Specimen was Collected: 01/02/25
Time Specimen was Collected: 18:59
Abnormal Lab Results
01/02/25
18:43
RBC 4.07 L 10^6/uL
(4.70-6.10)
MCV 96.6 H fL
(80.0-94.0)
MCH 33.2 H pg
(27.0-31.0)
MPV 10.8 H fL
(7.4-10.4)
Absolute Monos (auto) 0.7 H 10^3/uL
(0.1-0.6)
Lymphocytes % 18.7 L %
(20.5-51.1)
Glucose 115 H mg/dl
(70-99)
01/02/25 18:43
01/02/25 18:43
Vital Signs
Initial and Last Documented VS:
Initial Vital Signs
Temp Pulse Resp BP Pulse Ox
97.8 F 92 16 109/73 98
01/02/25 15:31 01/02/25 15:31 01/02/25 15:31 01/02/25 15:31 01/02/25 15:31
Last Documented Vital Signs
Temp Pulse Resp BP Pulse Ox
97.8 F 95 18 93/57 98
01/02/25 15:31 01/02/25 22:01 01/02/25 22:01 01/02/25 22:01 01/02/25 22:01
Procedures
Other
Indication for procedure:: Fecal impaction
Procedure completed by: Myself
Consent form signed: No
If no, reason: Emergency procedure
Additional Procedure:
Manually disimpacted took 30 minutes
*Critical Care Note
Total Time (30-74mins, 75-104mins- exclusive of procedures): Not Applicable
ED Attending Note
-
Portions of this chart may have been created with voice recognition software.� Occasional wrong word or��sound alike� substitutions may have occurred due to the inherent limitations of voice recognition software.
Discharge Plan
Departure
Patient Disposition: Home (Routine Discharge)
Date of Disposition: 01/02/25
Time of Disposition: 22:07
Patient with high blood pressure during this ER visit?: No
Condition: Good
Covid-19: Not Applicable
Discharge Problem:
Fecal impaction
Instructions: Fecal Impaction (DC)
Prescriptions:
No Action
Eliquis 5 mg Tablet
10 mg PO BID 4 Days Qty: 16 0RF
Eliquis 5 mg tablet
5 mg PO BID 30 Days Qty: 60 0RF
Rx Instructions:
Start 12/01/2024
pantoprazole 40 mg Tablet,Delayed Release (Dr/Ec)
40 mg PO DAILY 30 Days Qty: 30 0RF
Referrals:
Kong Rolon MD [Family Provider] -
Activity Restrictions/Additional Instructions:
You came to the emergency department today with concerns of difficulty with bowel movements. Here you had a fecal impaction which was manually disimpacted. Please use MiraLAX daily as needed as well as Colace. Please feel close with the primary
care doctor. Return for any worsening, new or concerning symptoms.
Interventions
Interventions:
*Risk Screen - Suicide Last Done: 01/02/25 15:31
*General Assessment Last Done: 01/02/25 17:30
*Neglect/Abuse Screening Last Done: 01/02/25 17:30
*ED- Fall Risk Assessment Last Done: 01/02/25 17:30
*ED COVID-19 Vaccine History Last Done: 01/02/25 17:30
VM-Eeuyav-Uejwowpadp Assessment Last Done: 01/02/25 17:30
Discharge Date and Time
Print Language: ISRAELI
== END 2025-01-02 22:15 | disposition home or self-care (01) ==
LOC: EMR 15:28
PROVIDERS: Physician Assistant; EMERGENCY PHYSICIAN Emergency Medicine; FAMILY PHYSICIAN Internal Medicine
DX: K56.41 Fecal impaction (principal); F03.90 Unspecified dementia, unspecified severity, without behavioral disturbance, psychotic disturbance, mood disturbance, and anxiety; Z86.711 Personal history of pulmonary embolism; Z86.718 Personal history of other venous thrombosis and embolism; Z90.49 Acquired absence of other specified parts of digestive tract; Z79.899 Other long term (current) drug therapy
CPT/HCPCS: 99284; 74177; 80053; 81003; 83605; 83690; 85025; Q9967

== ENCOUNTER 2025-04-18 15:22 | Outpatient (RCR) | payer MEDICARE, OTHER, SELFPAY | END 2025-04-18 23:59 | disposition home or self-care (01) | LOC: ROT 15:22 | PROVIDERS: ATTENDING PHYSICIAN Family Medicine | DX: R41.841 Cognitive communication deficit (principal); G31.83 Neurocognitive disorder with Lewy bodies; R26.89 Other abnormalities of gait and mobility | CPT/HCPCS: 96125; 97129; 97130; 97167; 97535 ==

== ENCOUNTER 2025-05-21 13:06 | Outpatient (RCR) | payer MEDICARE, OTHER, SELFPAY | END 2025-05-21 23:59 | disposition home or self-care (01) | LOC: ROT 13:06 | PROVIDERS: ATTENDING PHYSICIAN Family Medicine | DX: R41.841 Cognitive communication deficit (principal); G31.83 Neurocognitive disorder with Lewy bodies; R26.89 Other abnormalities of gait and mobility; Z73.6 Limitation of activities due to disability | CPT/HCPCS: 97129; 97130; 97530; 97535 ==

== ENCOUNTER 2025-06-18 13:16 | Outpatient (RCR) | payer MEDICARE, OTHER, SELFPAY | END 2025-06-18 23:59 | disposition home or self-care (01) | LOC: ROT 13:16 | PROVIDERS: ATTENDING PHYSICIAN Family Medicine | DX: R41.841 Cognitive communication deficit (principal); G31.83 Neurocognitive disorder with Lewy bodies; R26.89 Other abnormalities of gait and mobility | CPT/HCPCS: 97129; 97130; 97530; 97535 ==

== ENCOUNTER 2025-08-22 08:30 | Outpatient (RCR) | payer MEDICARE, OTHER, SELFPAY | END 2025-08-22 23:59 | disposition home or self-care (01) | LOC: ROT 08:30 | PROVIDERS: ATTENDING PHYSICIAN Family Medicine | DX: R41.841 Cognitive communication deficit (principal); G31.83 Neurocognitive disorder with Lewy bodies; R26.89 Other abnormalities of gait and mobility; Z73.6 Limitation of activities due to disability | CPT/HCPCS: 97129; 97130; 97530; 97535 ==

== ENCOUNTER 2025-09-19 13:25 | Outpatient (RCR) | payer MEDICARE, OTHER, SELFPAY | END 2025-09-19 23:59 | disposition home or self-care (01) | LOC: ROT 13:25 | PROVIDERS: ATTENDING PHYSICIAN Family Medicine | DX: R41.841 Cognitive communication deficit (principal); G31.83 Neurocognitive disorder with Lewy bodies; R26.89 Other abnormalities of gait and mobility; Z73.6 Limitation of activities due to disability | CPT/HCPCS: 97129; 97130; 97530; 97535 ==

== ENCOUNTER 2025-10-09 14:25 | Outpatient (RCR) | payer MEDICARE, OTHER, SELFPAY | END 2025-10-09 23:59 | disposition home or self-care (01) | LOC: ROT 14:25 | PROVIDERS: ATTENDING PHYSICIAN Family Medicine | DX: R41.841 Cognitive communication deficit (principal); G31.83 Neurocognitive disorder with Lewy bodies; R26.89 Other abnormalities of gait and mobility; Z73.6 Limitation of activities due to disability | CPT/HCPCS: 97129; 97130; 97530; 97535 ==